=== PATIENT | female | born 1995 | race Caucasian/White ===

== ENCOUNTER 2016-09-30 09:50 | Inpatient (IN) | payer MEDICAID ==
[2016-09-30] MEDS ORDERED: Aluminum Hydroxide/Magnesium Hydroxide/Simethicone Susp 30 ML Cup PO PRN (10:55)
[2016-09-30] MEDS ORDERED: Ondansetron 4 MG/2 ML SDV IVPUSH PRN ×2 (10:55→13:51)
[2016-09-30] MEDS ORDERED: Nalbuphine 20 MG/1 ML Amp IVPUSH PRN (10:55)
[2016-09-30] MEDS ORDERED: Oxytocin/Lactated Ringers 10 UNIT/1,000 ML BAG IV SCH ×2 (11:00→12:15)
--- NOTE | 2016-09-30 11:39 | PCM.LDHP ---
L&D History of Present Illness - General Date of Service: 09/30/16 Admit Problem/Dx: Patient Status Order with Admit Dx/Problem 09/30/16 10:56 Patient Status [ADT] Routine Admission Diagnosis/Problem Admission Diagnosis/Problem Source of Information: Patient History Limitations: Reports: No Limitations - History of Present Illness Introduction:: 21-year-old MARY LOU 10/18/2016 presented to labor and delivered estimated gestational age of 37 weeks and 3 days with gross ruptured membranes 0 835 this morning clear fluid (09/30/16) GBS negative and pressures elevated PIH labs ordered some swelling and no hyperreflexia patient admitted for labor and delivery plans epidural blood type O-positive antibody screen negative on hemoglobin 11 crit 14.7/42.0 platelets 204,000 rubella immune serology nonreactive urine culture mixed alex Chlamydia and gonorrhea were negative on 02/24/16 ultrasound on 02/24/16 revealed 6 weeks 1 day estimated date of confinement 10/18/16 on 07/27/16 hemoglobin and hematocrit 13.8/40.5 platelets 164 ,001 hour OB glucose screen 97 Timing/Duration: Reports: hour(s): Location, : Reports: Abdomen, Lower back Quality: Reports: Ache, Pressure Severity: Mild Pain Score: 4 Improves with: Reports: None Worsens with: Reports: None Associated Symptoms: Reports: vaginal fluid - Related Data Allergies/Adverse Reactions: Allergies Allergy/AdvReac Type Severity Reaction Status Date / Time No Known Allergies Allergy Verified 09/30/16 10:52 Home Medications: Home Meds PNV95/Ferrous Fumarate/FA [ Vitamin Tablet] 1 each PO DAILY 09/26/16 [ History] Docosahexanoic Acid [DHA] 100 mg PO DAILY 09/30/16 [History] Past Medical History : 1 Para: 0 (0000) LMP (Approximate): H&P Review of Systems - Review of Systems: Review Of Systems: See Below General: Reports: No Symptoms HEENT: Reports: No Symptoms Pulmonary: Reports: No Symptoms Cardiovascular: Reports: No Symptoms Gastrointestinal: Reports: No Symptoms Genitourinary: Reports: No Symptoms Musculoskeletal: Reports: No Symptoms Skin: Reports: No Symptoms Psychiatric: Reports: No Symptoms Neurological: Reports: No Symptoms Hematologic/Lymphatic: Reports: No Symptoms Immunologic: Reports: No Symptoms L&D Exam - Exam Exam: See Below - Vital Signs Vital Signs: Last Vital Signs Temp 99.5 F 09/30/16 10:56 Pulse 121 H 09/30/16 10:56 Resp 18 09/30/16 10:56 BP 144/92 H 09/30/16 10:56 Pulse Ox 100 09/30/16 10:56 Weight: 190 lb 14.4 oz - OB Specific Fundal Height In cm: 37 Contraction Duration (sec): 60 Contraction Frequency (min): 5 Contraction Intensity: Mild Movement: Active Heart Tones: Present Heart Tones per Min: 144 Heart Rate (FHR) Variability: Moderate (6-25 bmp) Presentation: Vertex - Dykes Score Dykes Score Cervix Position: Posterior Dykes Score Consistency: Soft Dykes Score Effacement: 51-70% Dykes Score Dilation: 3-4 cm Dykes Score 's Station: -1 ,0 Dykes Score Total: 8 - Exam General: Alert, Oriented HEENT: Mucosa Moist & [place] Neck: Supple, Trachea Midline Lungs: Clear to Auscultation, Normal Respiratory Effort Cardiovascular: Regular Rate, Regular Rhythm Abdomen: Normal Bowel Sounds, Soft, Pelvis Stable Genitourinary: Normal external exam Extremities: Normal Inspection Skin: Warm, Dry, Intact Neurological: Reflexes Equal Bilateral DTR: 2+: Patella (L), Patella (R) - Patient Data Lab Results Last 24 hrs: Laboratory Results - last 24 hr 09/30/16 Range/Units 11:12 WBC 12.27 H (3.98-10.04) K/mm3 RBC 4.85 (3.98-5.22) M/mm3 Hgb 14.3 (11.2-15.7) gm/L Hct 41.6 (34.1-44.9) % MCV 85.8 (79.4-94.8) fl MCH 29.5 (25.6-32.2) pg MCHC 34.4 (32.2-35.5) g/dl RDW Std Deviation 40.4 (36.4-46.3) fL Plt Count 157 L (182-369) K/mm3 MPV 10.8 (9.4-12.3) fl Result Diagrams: 09/30/16 11:12 - Problem List (1) 37 weeks gestation of SNOMED Code(s): 37137651 ICD Code: Z3A.37 - 37 WEEKS GESTATION OF Status: Acute Current Visit: Yes (2) Gestational hypertension affecting first SNOMED Code(s): 37491748 ICD Code: O13.9 - GESTATIONAL HTN W/O SIGNIFICANT PROTEINURIA, UNSP TRIMESTER Status: Acute Current Visit: Yes Problem List Initiated/Reviewed/Updated: No Orders Last 24hrs: Active Orders 24 hr Category Date Time Status Patient Status [ADT] Routine ADT 09/30/16 10:56 Active Activity as Tolerated [RC] PFP Care 09/30/16 10:56 Active Communication Order [RC] ASDIRECTED Care 09/30/16 10:56 Active Notify Provider [RC] PFP Care 09/30/16 10:56 Active Notify Provider [RC] PRN Care 09/30/16 10:56 Active Vital Signs [RC] PER UNIT ROUTINE Care 09/30/16 10:56 Active Clear Liquid Diet [DIET] Diet 09/30/16 Lunch Active ALANINE AMINOTRANSFERASE,ALT [CHEM] Stat Lab 09/30/16 11:33 Ordered ASPARTATE AMNIOTRANSFERASE,AST [CHEM] Stat Lab 09/30/16 11:33 Ordered BLOOD UREA NITROGEN,BUN [CHEM] Stat Lab 09/30/16 11:33 Ordered CREATININE W/GFR [CHEM] Stat Lab 09/30/16 11:33 Ordered LACTATE DEHYDROGENASE,LDH [CHEM] Stat Lab 09/30/16 11:33 Ordered TYPE AND SCREEN [BBK] Stat Lab 09/30/16 11:12 Received URIC ACID [CHEM] Stat Lab 09/30/16 11:33 Ordered Alum Hydrox/Mag Hydrox/Simeth [Mag-Al Plus] Med 09/30/16 10:55 Active 30 ml PO Q8H PRN Lactated Ringers [Ringers, Lactated] 1,000 ml Med 09/30/16 11:00 Active IV ASDIRECTED Nalbuphine [Nubain] Med 09/30/16 10:55 Active 10 mg IVPUSH Q2H PRN Ondansetron [Zofran] Med 09/30/16 10:55 Active 4 mg IVPUSH Q4H PRN Oxytocin/Lactated Ringers [Pitocin in LR 10 Units/1,000 Med 09/30/16 11:00 Active ML] 10 unit in 1,000 ml IV ASDIRECTED Electronic Heart Tones Ext w TOCO [WOMSER] Oth 06/22/17 10:56 Ordered Routine Electronic Heart Tones Internal [WOMSER] Per Unit Oth 09/30/16 10:56 Ordered Routine PIH Panel [OM.PC] Stat Ot 09/30/16 11:33 Ordered Peripheral IV Insertion Adult [OM.PC] Routine Ot 09/30/16 10:56 Ordered Resuscitation Status Routine Resus Stat 09/30/16 10:55 Ordered Medication Orders Al Hydroxide/Mg Hydroxide (Mag-Al Plus) 30 ml PO Q8H PRN PRN Reason: Heartburn Lactated Ringer's (Ringers, Lactated) 1,000 mls @ 100 mls/hr IV ASDIRECTED RANDI Oxytocin/Lactated Ringer's (Pitocin In Lr 10 Units/1,000 Ml) 10 unit in 1,000 mls @ 500 mls/hr IV ASDIRECTED RANDI Nalbuphine HCl (Nubain) 10 mg IVPUSH Q2H PRN PRN Reason: Pain (moderate 4-6) Ondansetron HCl (Zofran) 4 mg IVPUSH Q4H PRN PRN Reason: Nausea/Vomiting Assessment/Plan Comment:: Labor and delivery
--- NOTE | 2016-09-30 13:34 | PCM.PREANE ---
Preanesthetic Assessment - Procedure Proposed Procedure: Labor Epidural - Anesthesia/Transfusion/Family Hx Anesthesia History: Prior Anesthesia Without Reaction Family History of Anesthesia Reaction: No Transfusion History: No Prior Transfusion(s) - Review of Systems General: No Symptoms Pulmonary: No Symptoms Cardiovascular: No Symptoms Gastrointestinal: No symptoms Neurological: No Symptoms Other: Reports: None - Physical Assessment NPO Status Date: 09/30/16 NPO Status Time: 08:00 O2 Sat by Pulse Oximetry: 100 Respiratory Rate: 18 Vital Signs: Last Vital Signs Temp 37.5 C 09/30/16 10:56 Pulse 121 H 09/30/16 10:56 Resp 18 09/30/16 10:56 BP 144/92 H 09/30/16 10:56 Pulse Ox 100 09/30/16 10:56 Height: 1.57 m Weight: 86.591 kg ASA Class: 2 Mental Status: Alert & Oriented x3 Airway Class: Mallampati = 1 Dentition: Reports: Normal Dentition Thyro-Mental Finger Breadths: 3 Mouth Opening Finger Breadths: 3 ROM/Head Extension: Full Lungs: Clear to auscultation, Normal respiratory effort Cardiovascular: Regular Rate, Regular Rhythm - Lab Values: Laboratory Last Values WBC 12.27 K/mm3 (3.98-10.04) H 09/30/16 11:12 RBC 4.85 M/mm3 (3.98-5.22) 09/30/16 11:12 Hgb 14.3 gm/L (11.2-15.7) 09/30/16 11:12 Hct 41.6 % (34.1-44.9) 09/30/16 11:12 MCV 85.8 fl (79.4-94.8) 09/30/16 11:12 MCH 29.5 pg (25.6-32.2) 09/30/16 11:12 MCHC 34.4 g/dl (32.2-35.5) 09/30/16 11:12 RDW Std Deviation 40.4 fL (36.4-46.3) 09/30/16 11:12 Plt Count 157 K/mm3 (182-369) L 09/30/16 11:12 MPV 10.8 fl (9.4-12.3) 09/30/16 11:12 PT 9.3 SECONDS (8.0-13.0) 09/30/16 12:05 INR 0.86 09/30/16 12:05 Fibrinogen 508.6 mg/dL (200-400) H 09/30/16 12:05 Fibrin Degrad Products < 5 ug/ml ug/mL (<5) 09/30/16 12:05 BUN 9 mg/dL (7-18) 09/30/16 11:12 Creatinine 0.8 mg/dL (0.55-1.02) 09/30/16 11:12 Est Cr Clr Drug Dosing 87.24 mL/min 09/30/16 11:12 Estimated GFR (MDRD) > 60 mL/min (>60) 09/30/16 11:12 Uric Acid 7.3 mg/dL (2.6-6.0) H 09/30/16 11:12 AST 32 U/L (15-37) 09/30/16 11:12 ALT 30 U/L (14-59) 09/30/16 11:12 Lactate Dehydrogenase 200 U/L (81-234) 09/30/16 11:12 Blood Type O POSITIVE 09/30/16 11:12 Gel Antibody Screen Negative 09/30/16 11:12 - Allergies Allergies/Adverse Reactions: Allergies Allergy/AdvReac Type Severity Reaction Status Date / Time No Known Allergies Allergy Verified 09/30/16 10:52 - Blood Blood Available: No Product(s) Available: None - Anesthesia Plan Pre-Op Medication Ordered: None - Acknowledgements Anesthesia Type Planned: Epidural Pt an Appropriate Candidate for the Planned Anesthesia: Yes Alternatives and Risks of Anesthesia Discussed w Pt/Guardian: Yes Pt/Guardian Understands and Agrees with Anesthesia Plan: Yes PreAnesthesia Questionnaire Psychiatric History: Reports: Anxiety, Depression - SUBSTANCE USE Smoking Status *Q: Never Smoker - HOME MEDS Home Medications: Home Meds PNV95/Ferrous Fumarate/FA [ Vitamin Tablet] 1 each PO DAILY 09/26/16 [ History] Docosahexanoic Acid [DHA] 100 mg PO DAILY 09/30/16 [History] - CURRENT (IN HOUSE) MEDS Current Meds: Current Medications Al Hydroxide/Mg Hydroxide (Mag-Al Plus) 30 ml PO Q8H PRN PRN Reason: Heartburn Lactated Ringer's (Ringers, Lactated) 1,000 mls @ 100 mls/hr IV ASDIRECTED RANDI Oxytocin/Lactated Ringer's (Pitocin In Lr 10 Units/1,000 Ml) 10 unit in 1,000 mls @ 500 mls/hr IV ASDIRECTED RADNI Oxytocin/Lactated Ringer's (Pitocin In Lr 10 Units/1,000 Ml) 10 unit in 1,000 mls @ 12 mls/hr IV TITRATE RANDI; 2 MUNITS/MIN PRN Reason: Protocol Nalbuphine HCl (Nubain) 10 mg IVPUSH Q2H PRN PRN Reason: Pain (moderate 4-6) Ondansetron HCl (Zofran) 4 mg IVPUSH Q4H PRN PRN Reason: Nausea/Vomiting
[2016-09-30] MEDS ORDERED: ePHEDrine 50 MG/ML SDV IVPUSH PRN (13:51)
[2016-09-30] MEDS ORDERED: diphenhydrAMINE 50 MG/ML SDV IVPUSH PRN (13:51)
[2016-09-30] MEDS ORDERED: fentaNYL 100 MCG/2 ML SDV EPIDUR PRN (13:51)
[2016-09-30] MEDS: Lactated Ringers 1,000 ML IV SCH ×4 (13:55→20:22)
[2016-09-30] MEDS ORDERED: Bupivacaine/fentaNYL/NS 100 ML Bag EPIDUR SCH (14:00)
--- NOTE | 2016-09-30 21:50 | PCM.DEL ---
L & D Note - General Info Date of Service: 09/30/16 Mother's Due Date: 10/18/16 - Delivery Note Labor: spontaneous, augmented by oxytocin Delivery Outcome: Livebirth (female liveborn 2127 hrs. on 09/30/16 3080 grams 6 pounds 12.6 ounces 7/9 EVA) Delivery Method: Spontaneous Vaginal Delivery Infant Delivery Mode: Spontaneous Presentation: Left Occiput Anterior (EVA) Nuchal Cord: None Prep: Povidone-Iodine (Betadine Anesthesia Type: Epidural ( 2127 hrs. on ) Amniotic Fluid Description: Clear (y 09/30/16 3) Episiotomy Type: None (080 g) Laceration: 1st degree (midline and left labia majora) Suture type: other (Monocryl) Suture size: 3-0 Placenta: intact, spontaneous (2130 hrs. 09/30/16) Cord: 3 vessels Estimated Blood Loss: 500 Resuscitation Needed: No : Suctioned, Bulb Syringe, Stimulated, Warmed, [place] Used Provider: Jonathan Birch Score 1 min: 7 Score 5 min: 9 - Patient Data Vitals - most recent: Last Vital Signs Temp 99.5 F 09/30/16 10:56 Pulse 121 H 09/30/16 10:56 Resp 18 09/30/16 13:44 BP 144/92 H 09/30/16 10:56 Pulse Ox 100 09/30/16 13:44 Weight - most recent: 190 lb 14.4 oz Lab Results last 24 hrs: Laboratory Results - last 24 hr 09/30/16 09/30/16 09/30/16 Range/Units 11:12 11:12 11:12 WBC 12.27 H (3.98-10.04) K/mm3 RBC 4.85 (3.98-5.22) M/mm3 Hgb 14.3 (11.2-15.7) gm/L Hct 41.6 (34.1-44.9) % MCV 85.8 (79.4-94.8) fl MCH 29.5 (25.6-32.2) pg MCHC 34.4 (32.2-35.5) g/dl RDW Std Deviation 40.4 (36.4-46.3) fL Plt Count 157 L (182-369) K/mm3 MPV 10.8 (9.4-12.3) fl PT (8.0-13.0) SECONDS INR Fibrinogen (200-400) mg/dL Fibrin Degrad Products (<5) ug/mL BUN 9 (7-18) mg/dL Creatinine 0.8 (0.55-1.02) mg/dL Est Cr Clr Drug Dosing 87.24 mL/min Estimated GFR (MDRD) > 60 (>60) mL/min Uric Acid 7.3 H (2.6-6.0) mg/dL AST 32 (15-37) U/L ALT 30 (14-59) U/L Lactate Dehydrogenase 200 (81-234) U/L Blood Type O POSITIVE Gel Antibody Screen Negative 09/30/16 09/30/16 Range/Units 12:05 12:05 WBC (3.98-10.04) K/mm3 RBC (3.98-5.22) M/mm3 Hgb (11.2-15.7) gm/L Hct (34.1-44.9) % MCV (79.4-94.8) fl MCH (25.6-32.2) pg MCHC (32.2-35.5) g/dl RDW Std Deviation (36.4-46.3) fL Plt Count (182-369) K/mm3 MPV (9.4-12.3) fl PT 9.3 (8.0-13.0) SECONDS INR 0.86 Fibrinogen 508.6 H (200-400) mg/dL Fibrin Degrad Products < 5 ug/ml (<5) ug/mL BUN (7-18) mg/dL Creatinine (0.55-1.02) mg/dL Est Cr Clr Drug Dosing mL/min Estimated GFR (MDRD) (>60) mL/min Uric Acid (2.6-6.0) mg/dL AST (15-37) U/L ALT (14-59) U/L Lactate Dehydrogenase (81-234) U/L Blood Type Gel Antibody Screen Med Orders - Current: Current Medications Al Hydroxide/Mg Hydroxide (Mag-Al Plus) 30 ml PO Q8H PRN PRN Reason: Heartburn Diphenhydramine HCl (Benadryl) 25 mg IVPUSH Q6H PRN PRN Reason: Pruritis Ephedrine Sulfate (Ephedrine Sulfate) 5 mg IVPUSH ASDIRECTED PRN PRN Reason: Hypotension Fentanyl (Sublimaze) 100 mcg EPIDUR Q3H PRN PRN Reason: Pain Last Admin: 09/30/16 15:50 Dose: 100 mcg Fentanyl/Bupivacaine HCl (Fentanyl/Bupivacaine/Ns 2 Mcg-0.125% 100 Ml) 100 ml EPIDUR ASDIRECTED RANDI Last Admin: 09/30/16 15:51 Dose: 100 ml Lactated Ringer's (Ringers, Lactated) 1,000 mls @ 100 mls/hr IV ASDIRECTED RANDI Last Admin: 09/30/16 20:22 Dose: 100 mls/hr Oxytocin/Lactated Ringer's (Pitocin In Lr 10 Units/1,000 Ml) 10 unit in 1,000 mls @ 500 mls/hr IV ASDIRECTED RANDI Oxytocin/Lactated Ringer's (Pitocin In Lr 10 Units/1,000 Ml) 10 unit in 1,000 mls @ 12 mls/hr IV TITRATE RANDI; 2 MUNITS/MIN PRN Reason: Protocol Last Titration: 09/30/16 20:21 Dose: 4 munits/min, 24 mls/hr Nalbuphine HCl (Nubain) 10 mg IVPUSH Q2H PRN PRN Reason: Pain (moderate 4-6) Ondansetron HCl (Zofran) 4 mg IVPUSH Q4H PRN PRN Reason: Nausea/Vomiting Ondansetron HCl (Zofran) 4 mg IVPUSH ONETIME PRN PRN Reason: Nausea/Vomiting - Problem List & Annotations (1) 37 weeks gestation of SNOMED Code(s): 22309953 Code(s): Z3A.37 - 37 WEEKS GESTATION OF Status: Acute Current Visit: Yes (2) Gestational hypertension affecting first SNOMED Code(s): 06143789 Code(s): O13.9 - GESTATIONAL HTN W/O SIGNIFICANT PROTEINURIA, UNSP TRIMESTER Status: Acute Current Visit: Yes (3) First degree perineal laceration during delivery SNOMED Code(s): 893520139 Code(s): O70.0 - FIRST DEGREE PERINEAL LACERATION DURING DELIVERY Status: Acute Current Visit: Yes - Problem List Review Problem List Initiated/Reviewed/Updated: No - My Orders Last 24 Hours: My Active Orders 09/30/16 10:55 Alum Hydrox/Mag Hydrox/Simeth [Mag-Al Plus] 30 ml PO Q8H PRN Nalbuphine [Nubain] 10 mg IVPUSH Q2H PRN Ondansetron [Zofran] 4 mg IVPUSH Q4H PRN Resuscitation Status Routine 09/30/16 10:56 Patient Status [ADT] Routine Activity as Tolerated [RC] PFP Communication Order [RC] ASDIRECTED Notify Provider [RC] PFP Notify Provider [RC] PRN Vital Signs [RC] PER UNIT ROUTINE Electronic Heart Tones Ext w TOCO [WOMSER] Routine Electronic Heart Tones Internal [WOMSER] Per Unit Routine Peripheral IV Insertion Adult [OM.PC] Routine 09/30/16 11:00 Lactated Ringers [Ringers, Lactated] 1,000 ml IV ASDIRECTED Oxytocin/Lactated Ringers [Pitocin in LR 10 Units/1,000 ML] 10 unit in 1,000 ml IV ASDIRECTED 09/30/16 11:33 PIH Panel [OM.PC] Stat 09/30/16 12:15 Oxytocin/Lactated Ringers [Pitocin in LR 10 Units/1,000 ML] 10 unit in 1,000 ml IV TITRATE 09/30/16 Lunch Clear Liquid Diet [DIET] - Plan Plan:: Labor and delivery
[2016-09-30] MEDS ORDERED: Lanolin 100% Cream 7 GM Tube TOP PRN (22:38)
[2016-09-30] MEDS ORDERED: Bupivacaine 0.25% 10 ML SDV ONE (22:38)
[2016-09-30] MEDS ORDERED: Acetaminophen/oxyCODONE 325-5 MG Tab PO PRN (22:38)
[2016-09-30] MEDS ORDERED: Witch Hazel Medicated Pads 100/Jar TOP PRN (22:38)
[2016-09-30] MEDS: Benzocaine/Menthol 20%-0.5% Spray 56 GM Canister TOP PRN ×2 (23:04→23:06)
[2016-09-30] MEDS: Ibuprofen 600 MG Tab PO PRN (23:04)
[2016-09-30] MEDS: Docusate Sodium 100 MG Cap PO PRN (23:04)
[2016-10-01] MEDS: Ibuprofen 600 MG Tab PO PRN ×3 (04:06→22:12)
--- NOTE | 2016-10-01 07:59 | PCM.SN ---
- Free Text/Narrative Note: PPD#1 Afebrile, no heavy vaginal bleeding, no leg cramping. Dr Bañuelos assembly lead person this weekend and will see patient tomorrow and dismiss when ready.
[2016-10-01] MEDS: Acetaminophen 325 MG Tab PO PRN (17:36)
[2016-10-01] MEDS: Benzocaine/Menthol 20%-0.5% Spray 56 GM Canister TOP PRN (22:12)
[2016-10-01] MEDS: Docusate Sodium 100 MG Cap PO PRN (23:30)
[2016-10-02] MEDS: Acetaminophen 325 MG Tab PO PRN (05:12)
[2016-10-02 05:35] VITALS: BP 139/82
--- NOTE | 2016-10-02 07:36 | PCM.PNPP ---
- General Info Date of Service: 10/02/16 Functional Status: Reports: pain controlled, tolerating diet, ambulating, urinating - Review of Systems General: Reports: No Symptoms Pulmonary: Reports: no symptoms Cardiovascular: Reports: No Symptoms Gastrointestinal: Reports: No symptoms Genitourinary: Reports: other (Some perineal discomfort and irritation ) - Patient Data Vital Signs - most recent: Last Vital Signs Temp 36.3 C 10/02/16 04:02 Pulse 109 H 10/02/16 04:02 Resp 16 10/02/16 04:02 BP 139/82 10/02/16 04:02 Pulse Ox 98 10/02/16 04:02 Weight - most recent: 86.591 kg Med Orders - Current: Current Medications Acetaminophen (Tylenol) 650 mg PO Q4H PRN PRN Reason: mild pain or fever Last Admin: 10/02/16 05:12 Dose: 650 mg Benzocaine/Menthol (Dermoplast Pain Relief [place]) 0 gm TOP ASDIRECTED PRN PRN Reason: Perineal Comfort Measure Last Admin: 10/01/16 22:12 Dose: 1 can Docusate Sodium (Colace) 100 mg PO BID PRN PRN Reason: Constipation Last Admin: 10/01/16 23:30 Dose: 100 mg Emollient Ointment (Lansinoh Hpa) 0 gm TOP ASDIRECTED PRN PRN Reason: Sore Nipples Ibuprofen (Motrin) 600 mg PO Q4H PRN PRN Reason: Mild pain or fever Last Admin: 10/01/16 22:12 Dose: 600 mg Oxycodone/Acetaminophen (Percocet 325-5 Mg) 2 tab PO Q4H PRN PRN Reason: Pain (moderate 4-6) Witch Irina (Tucks) 1 pad TOP ASDIRECTED PRN PRN Reason: Hemorrhoid pain Last Admin: 10/01/16 22:11 Dose: 1 pad Discontinued Medications Al Hydroxide/Mg Hydroxide (Mag-Al Plus) 30 ml PO Q8H PRN PRN Reason: Heartburn Bupivacaine HCl (Sensorcaine-Mpf 0.25%) 10 ml .ROUTE .STK-MED ONE Stop: 09/30/16 22:39 Diphenhydramine HCl (Benadryl) 25 mg IVPUSH Q6H PRN PRN Reason: Pruritis Ephedrine Sulfate (Ephedrine Sulfate) 5 mg IVPUSH ASDIRECTED PRN PRN Reason: Hypotension Fentanyl (Sublimaze) 100 mcg EPIDUR Q3H PRN PRN Reason: Pain Last Admin: 09/30/16 15:50 Dose: 100 mcg Fentanyl/Bupivacaine HCl (Fentanyl/Bupivacaine/Ns 2 Mcg-0.125% 100 Ml) 100 ml EPIDUR ASDIRECTED RANDI Last Admin: 09/30/16 15:51 Dose: 100 ml Lactated Ringer's (Ringers, Lactated) 1,000 mls @ 100 mls/hr IV ASDIRECTED RANDI Last Admin: 09/30/16 20:22 Dose: 100 mls/hr Oxytocin/Lactated Ringer's (Pitocin In Lr 10 Units/1,000 Ml) 10 unit in 1,000 mls @ 500 mls/hr IV ASDIRECTED RANDI Oxytocin/Lactated Ringer's (Pitocin In Lr 10 Units/1,000 Ml) 10 unit in 1,000 mls @ 12 mls/hr IV TITRATE RANDI; 2 MUNITS/MIN PRN Reason: Protocol Last Titration: 09/30/16 20:21 Dose: 4 munits/min, 24 mls/hr Nalbuphine HCl (Nubain) 10 mg IVPUSH Q2H PRN PRN Reason: Pain (moderate 4-6) Ondansetron HCl (Zofran) 4 mg IVPUSH Q4H PRN PRN Reason: Nausea/Vomiting Ondansetron HCl (Zofran) 4 mg IVPUSH ONETIME PRN PRN Reason: Nausea/Vomiting - Interaction Infant Disposition, : in Room with Family Infant Interaction: Holding Infant Feeding: Attempted ; Nursed Fair/Poor Support Person: Significant Other - Recovery Exam Fundal Tone: Firm Fundal Level: 2 Fingerbreadths Below Umbilicus Fundal Placement: Midline Lochia Amount: Small Lochia Color: Rubra/Red Perineum Description: Other (see below) Other Perinuem Description: first degree labial tear with repair Episiotomy/Laceration: Approximated Bladder Status: Voiding Urinary Elimination: Voided - Exam General: alert, oriented, cooperative Abdomen: soft, no tenderness Extremities: no edema Skin: warm, dry, intact - Problem List & Annotations (1) Vaginal delivery SNOMED Code(s): 001801253 Code(s): O80 - ENCOUNTER FOR FULL-TERM UNCOMPLICATED DELIVERY Status: Acute Current Visit: Yes (2) 37 weeks gestation of SNOMED Code(s): 29925365 Code(s): Z3A.37 - 37 WEEKS GESTATION OF Status: Acute Current Visit: Yes (3) First degree perineal laceration during delivery SNOMED Code(s): 808316814 Code(s): O70.0 - FIRST DEGREE PERINEAL LACERATION DURING DELIVERY Status: Acute Current Visit: Yes (4) Gestational hypertension affecting first SNOMED Code(s): 70900074 Code(s): O13.9 - GESTATIONAL HTN W/O SIGNIFICANT PROTEINURIA, UNSP TRIMESTER Status: Acute Current Visit: Yes - Problem List Review Problem List Initiated/Reviewed/Updated: Yes - Assessment Assessment:: 21 y/o G1 now P1 PPD#2 from at 37 3/7 wks - Plan Plan:: Gestational HTN * BP's mostly mild range after delivery. No signs/symptoms. Will have patient follow up in 1-2 weeks for a BP check S/p * Routine cares * Encourage breast feeding * Discharge home today
--- NOTE | 2016-10-02 07:41 | PCM.DCSUM1 ---
Discharge Summary - Discharge Data Discharge Date: 10/02/16 Discharge Disposition: Home, Self-Care 01 Condition: Good - Discharge Diagnosis/Problem(s) (1) Vaginal delivery SNOMED Code(s): 164473129 ICD Code: O80 - ENCOUNTER FOR FULL-TERM UNCOMPLICATED DELIVERY Status: Acute Current Visit: Yes (2) 37 weeks gestation of SNOMED Code(s): 46719463 ICD Code: Z3A.37 - 37 WEEKS GESTATION OF Status: Acute Current Visit: Yes (3) First degree perineal laceration during delivery SNOMED Code(s): 818646128 ICD Code: O70.0 - FIRST DEGREE PERINEAL LACERATION DURING DELIVERY Status: Acute Current Visit: Yes (4) Gestational hypertension affecting first SNOMED Code(s): 22481988 ICD Code: O13.9 - GESTATIONAL HTN W/O SIGNIFICANT PROTEINURIA, UNSP TRIMESTER Status: Acute Current Visit: Yes - Patient Summary/Data Complications: None Consults: None Recommended Follow-up Testing/Procedures: Follow up in 1-2 weeks for BP check and in 5-6 weeks for check Hospital Course: 21 y/o presented at 37 3/7 wks with SROM and findings of gestational HTN. She progressed well and underwent an uncomplicated . See delivery note for full details. she did well and was discharged home on PPD#2 - Patient Instructions Diet: Regular Diet as Tolerated Activity: As Tolerated Activity, Other: Pelvic Rest for 6 weeks Driving: May Drive Today Showering/Bathing: May Shower Showering/Bathing, Other: May Bathe Notify Provider of: Fever, Increased Pain, Swelling and Redness, Drainage, Nausea and/or Vomiting - Discharge Plan Home Medications: Home Meds PNV95/Ferrous Fumarate/FA [ Vitamin Tablet] 1 each PO DAILY 09/26/16 [ History] Ibuprofen [IJD: Ibuprofen] 600 mg PO Q4H PRN #0 tablet 10/01/16 [Rx] Referrals: Jonathan Birch MD [Physician] - (1-2 weeks for BP check 5-6 weeks for check) - Discharge Summary/Plan Comment DC Time >30 min.: No - Patient Data Vitals - Most Recent: Last Vital Signs Temp 36.3 C 10/02/16 04:02 Pulse 109 H 10/02/16 04:02 Resp 16 10/02/16 04:02 BP 139/82 10/02/16 04:02 Pulse Ox 98 10/02/16 04:02 Weight - Most Recent: 86.591 kg Med Orders - Current: Current Medications Acetaminophen (Tylenol) 650 mg PO Q4H PRN PRN Reason: mild pain or fever Last Admin: 10/02/16 05:12 Dose: 650 mg Benzocaine/Menthol (Dermoplast Pain Relief [place]) 0 gm TOP ASDIRECTED PRN PRN Reason: Perineal Comfort Measure Last Admin: 10/01/16 22:12 Dose: 1 can Docusate Sodium (Colace) 100 mg PO BID PRN PRN Reason: Constipation Last Admin: 10/01/16 23:30 Dose: 100 mg Emollient Ointment (Lansinoh Hpa) 0 gm TOP ASDIRECTED PRN PRN Reason: Sore Nipples Ibuprofen (Motrin) 600 mg PO Q4H PRN PRN Reason: Mild pain or fever Last Admin: 10/01/16 22:12 Dose: 600 mg Oxycodone/Acetaminophen (Percocet 325-5 Mg) 2 tab PO Q4H PRN PRN Reason: Pain (moderate 4-6) Witch Ir[place] (Tucks) 1 pad TOP ASDIRECTED PRN PRN Reason: Hemorrhoid pain Last Admin: 10/01/16 22:11 Dose: 1 pad Discontinued Medications Al Hydroxide/Mg Hydroxide (Mag-Al Plus) 30 ml PO Q8H PRN PRN Reason: Heartburn Bupivacaine HCl (Sensorcaine-Mpf 0.25%) 10 ml .ROUTE .STK-MED ONE Stop: 09/30/16 22:39 Diphenhydramine HCl (Benadryl) 25 mg IVPUSH Q6H PRN PRN Reason: Pruritis Ephedrine Sulfate (Ephedrine Sulfate) 5 mg IVPUSH ASDIRECTED PRN PRN Reason: Hypotension Fentanyl (Sublimaze) 100 mcg EPIDUR Q3H PRN PRN Reason: Pain Last Admin: 09/30/16 15:50 Dose: 100 mcg Fentanyl/Bupivacaine HCl (Fentanyl/Bupivacaine/Ns 2 Mcg-0.125% 100 Ml) 100 ml EPIDUR ASDIRECTED RANDI Last Admin: 09/30/16 15:51 Dose: 100 ml Lactated Ringer's (Ringers, Lactated) 1,000 mls @ 100 mls/hr IV ASDIRECTED RANDI Last Admin: 09/30/16 20:22 Dose: 100 mls/hr Oxytocin/Lactated Ringer's (Pitocin In Lr 10 Units/1,000 Ml) 10 unit in 1,000 mls @ 500 mls/hr IV ASDIRECTED RANDI Oxytocin/Lactated Ringer's (Pitocin In Lr 10 Units/1,000 Ml) 10 unit in 1,000 mls @ 12 mls/hr IV TITRATE RANDI; 2 MUNITS/MIN PRN Reason: Protocol Last Titration: 09/30/16 20:21 Dose: 4 munits/min, 24 mls/hr Nalbuphine HCl (Nubain) 10 mg IVPUSH Q2H PRN PRN Reason: Pain (moderate 4-6) Ondansetron HCl (Zofran) 4 mg IVPUSH Q4H PRN PRN Reason: Nausea/Vomiting Ondansetron HCl (Zofran) 4 mg IVPUSH ONETIME PRN PRN Reason: Nausea/Vomiting *Q Meaningful Use (DIS) - VTE *Q VTE Criteria *Q: - Stroke *Q Stroke Criteria *Q: - AMI *Q AMI Criteria *Q:
== END 2016-10-02 09:15 | disposition home or self-care (01) | DRG 775 ==
LOC: JD.OBCHECK 09:50 → JD.OB 09:51 → JD.OBCHECK 10:55 → JD.OB 10:56 → OBSVTOIN 21:28
PROVIDERS: ADMIT Obstetrics & Gynecology; ATTEND Obstetrics & Gynecology
PROC: 10E0XZZ Delivery of Products of Conception, External Approach (ICD-10-PCS; principal; 2016-09-30)
PROC: 0HQ9XZZ Repair Perineum Skin, External Approach (ICD-10-PCS; 2016-09-30)
PROC: 3E0R3CZ (ICD-10-PCS; 2016-09-30)
DX: O24.420 Gestational diabetes mellitus in childbirth, diet controlled (principal); O70.0 First degree perineal laceration during delivery; Z3A.37 37 weeks gestation of pregnancy; Z37.0 Single live birth
CPT/HCPCS: 01967; 36415; 82565; 83615; 84450; 84460; 84520; 84550; 85025; 85027; 85362; 85384; 85610; 86850; 86900; 86901; A9270-GY; J2590; J3010; J7120

== ENCOUNTER 2017-10-16 07:49 | Inpatient (IN) | payer BC, MEDICAID ==
[2017-10-16] MEDS ORDERED: Sodium Chloride 0.9% 10 ML Syringe FLUSH PRN (08:38)
[2017-10-16] MEDS ORDERED: Oxytocin/Lactated Ringers 10 UNIT/1,000 ML BAG IV SCH ×2 (08:45→16:15)
[2017-10-16] MEDS: Lactated Ringers 1,000 ML IV SCH ×3 (09:39→13:22)
[2017-10-16] MEDS ORDERED: Ondansetron 4 MG/2 ML SDV IVPUSH PRN (10:02)
[2017-10-16] MEDS ORDERED: fentaNYL 100 MCG/2 ML SDV EPIDUR PRN (10:02)
[2017-10-16] MEDS ORDERED: ePHEDrine 50 MG/ML SDV IVPUSH PRN (10:02)
--- NOTE | 2017-10-16 10:05 | PCM.PREANE ---
Preanesthetic Assessment - Anesthesia/Transfusion/Family Hx Anesthesia History: Prior Anesthesia Without Reaction Family History of Anesthesia Reaction: No Transfusion History: No Prior Transfusion(s) Intubation History: Unknown - Review of Systems General: No Symptoms Pulmonary: No Symptoms Cardiovascular: No Symptoms Gastrointestinal: No Symptoms (GERD) Neurological: No Symptoms, Tingling (CTS bilateral hands) Other: Reports: Anxiety - Physical Assessment NPO Status Date: 10/15/17 NPO Status Time: 19:00 Pulse: 117 O2 Sat by Pulse Oximetry: 100 Respiratory Rate: 18 Blood Pressure: 137/87 Temperature: 37.3 C Vital Signs: Last Vital Signs Temp 37.3 C 10/16/17 08:08 Pulse 117 H 10/16/17 08:08 Resp 18 10/16/17 08:08 BP 137/87 10/16/17 08:08 Pulse Ox 100 10/16/17 08:08 Height: 1.57 m Weight: 92.669 kg ASA Class: 2 Mental Status: Alert & Oriented x3 Airway Class: Mallampati = 2 Dentition: Reports: Normal Dentition, Caries Thyro-Mental Finger Breadths: 3 Mouth Opening Finger Breadths: 3 ROM/Head Extension: Full Lungs: Clear to Auscultation, Normal Respiratory Effort Cardiovascular: Regular Rate, Regular Rhythm, No Murmurs - Lab Values: Laboratory Last Values WBC 10.66 K/mm3 (3.98-10.04) H 10/16/17 08:50 RBC 4.91 M/mm3 (3.98-5.22) 10/16/17 08:50 Hgb 12.9 gm/L (11.2-15.7) 10/16/17 08:50 Hct 39.4 % (34.1-44.9) 10/16/17 08:50 MCV 80.2 fl (79.4-94.8) 10/16/17 08:50 MCH 26.3 pg (25.6-32.2) 10/16/17 08:50 MCHC 32.7 g/dl (32.2-35.5) 10/16/17 08:50 RDW Std Deviation 43.8 fL (36.4-46.3) 10/16/17 08:50 Plt Count 179 K/mm3 (182-369) L 10/16/17 08:50 MPV 11.6 fl (9.4-12.3) 10/16/17 08:50 Neut % (Auto) 75.8 % (34.0-71.1) H 10/16/17 08:50 Lymph % (Auto) 16.5 % (19.3-51.7) L 10/16/17 08:50 [place] % (Auto) 6.7 % (4.7-12.5) 10/16/17 08:50 Eos % (Auto) 0.4 (0.7-5.8) L 10/16/17 08:50 Baso % (Auto) 0.2 % (0.1-1.2) 10/16/17 08:50 Neut # (Auto) 8.09 K/mm3 (1.56-6.13) H 10/16/17 08:50 Lymph # (Auto) 1.76 K/mm3 (1.18-3.74) 10/16/17 08:50 [place] # (Auto) 0.71 K/mm3 (0.24-0.36) H 10/16/17 08:50 Eos # (Auto) 0.04 K/mm3 (0.04-0.36) 10/16/17 08:50 Baso # (Auto) 0.02 K/mm3 (0.01-0.08) 10/16/17 08:50 Above labs reviewed and noted and within acceptable ranges to proceed with epidural. - Allergies Allergies/Adverse Reactions: Allergies Allergy/AdvReac Type Severity Reaction Status Date / Time No Known Allergies Allergy Verified 10/16/17 08:42 - Anesthesia Plan Pre-Op Medication Ordered: None - Acknowledgements Anesthesia Type Planned: Epidural Pt an Appropriate Candidate for the Planned Anesthesia: Yes Alternatives and Risks of Anesthesia Discussed w Pt/Guardian: Yes Pt/Guardian Understands and Agrees with Anesthesia Plan: Yes PreAnesthesia Questionnaire [employer] History: Reports: Psychiatric History: Reports: Anxiety, Depression - Past Surgical History HEENT Surgical History: Reports: Adenoidectomy, Tonsillectomy, Other (See Below) Other HEENT Surgeries/Procedures: age 2 Musculoskeletal Surgical History: Reports: Carpal Tunnel - SUBSTANCE USE Smoking Status *Q: Never Smoker Recreational Drug Use History: No - HOME MEDS Home Medications: Home Meds PNV95/Ferrous Fumarate/FA [ Vitamin Tablet] 1 each PO DAILY 09/26/16 [ History] Ibuprofen [IJD: Ibuprofen] 600 mg PO Q4H PRN #0 tablet 10/01/16 [Rx] - CURRENT (IN HOUSE) MEDS Current Meds: Current Medications Ephedrine Sulfate (Ephedrine Sulfate) 5 mg IVPUSH ASDIRECTED PRN PRN Reason: Hypotension Fentanyl (Sublimaze) 100 mcg EPIDUR Q3H PRN PRN Reason: Pain Fentanyl/Bupivacaine HCl (Fentanyl/Bupivacaine/Ns 2 Mcg-0.125% 100 Ml) 100 ml EPIDUR ASDIRECTED [facility] Lactated Ringer's (Ringers, Lactated) 1,000 mls @ 100 mls/hr IV ASDIRECTED RANDI Last Admin: 10/16/17 09:39 Dose: 999 mls/hr Oxytocin/Lactated Ringer's (Pitocin In Lr 10 Units/1,000 Ml) 10 unit in 1,000 mls @ 500 mls/hr IV .CONTINUOUS [facility] Ondansetron HCl (Zofran) 4 mg IVPUSH ONETIME PRN PRN Reason: Nausea/Vomiting Sodium Chloride (Saline Flush) 10 ml FLUSH ASDIRECTED PRN PRN Reason: Keep Vein Open
[2017-10-16] MEDS ORDERED: Bupivacaine/fentaNYL/NS 100 ML Bag EPIDUR SCH (10:15)
--- NOTE | 2017-10-16 18:17 | PCM.SN ---
- Free Text/Narrative Note: Stage I - Pt presented in active labor. Progressed to complete with reassuring heart tones. Epidural anesthesia. Stage II - of viable male 3600g, 8/9 APGARS. Head delivered in controlled manner over intact perineum. body and shoulders atraumatically. Vigorous cry. 3vc. Stage III - of intact placenta. True knot. Small first degree laceration repaired with 3-0 vicryl. EBL 150
[2017-10-16] MEDS ORDERED: Lanolin 100% Cream 7 GM Tube TOP PRN (18:27)
[2017-10-16] MEDS ORDERED: Benzocaine/Menthol 20%-0.5% Spray 56 GM Canister TOP PRN (18:27)
[2017-10-16] MEDS ORDERED: Witch Hazel Medicated Pads 100/Jar TOP PRN (18:27)
[2017-10-16] MEDS ORDERED: Docusate Sodium 100 MG Cap PO PRN (18:27)
[2017-10-16] MEDS: Ibuprofen 600 MG Tab PO PRN (19:27)
[2017-10-16] MEDS ORDERED: Bupivacaine 0.25% 10 ML SDV ONE (22:00)
[2017-10-17] MEDS: Ibuprofen 600 MG Tab PO PRN ×3 (02:02→14:45)
--- NOTE | 2017-10-17 07:40 | PCM48HPAN ---
Post Anesthesia Note - EVALUATION WITHIN 48HRS OF ANESTHETIC Vital Signs in Normal Range: Yes Patient Participated in Evaluation: Yes Respiratory Function Stable: Yes Airway Patent: Yes Cardiovascular Function Stable: Yes Hydration Status Stable: Yes Pain Control Satisfactory: Yes Nausea and Vomiting Control Satisfactory: Yes Mental Status Recovered: Yes Pulse Rate: 78 Resp Rate: 16 Temperature: 97.9 F Blood Pressure: 118/62
[2017-10-17 15:53] VITALS: BP 141/64
== END 2017-10-17 19:45 | disposition home or self-care (01) | DRG 560 ==
LOC: JD.OBCHECK 07:49 → JD.OB 07:49 → JD.OBCHECK 08:37 → JD.OB 08:38 → OBSVTOIN 17:53 → JD.OB 17:54
PROVIDERS: ADMIT Obstetrics & Gynecology; ATTEND Obstetrics & Gynecology
PROC: 10E0XZZ Delivery of Products of Conception, External Approach (ICD-10-PCS; principal; 2017-10-16)
PROC: 0HQ9XZZ Repair Perineum Skin, External Approach (ICD-10-PCS; 2017-10-16)
PROC: 00HU33Z Insertion of Infusion Device into Spinal Canal, Percutaneous Approach (ICD-10-PCS; 2017-10-16)
PROC: 3E0R3BZ Introduction of Anesthetic Agent into Spinal Canal, Percutaneous Approach (ICD-10-PCS; 2017-10-16)
DX: O69.2XX0 Labor and delivery complicated by other cord entanglement, with compression, not applicable or unspecified (principal); O70.0 First degree perineal laceration during delivery; Z3A.39 39 weeks gestation of pregnancy; Z37.0 Single live birth
CPT/HCPCS: 36415; 51701; 59025; 59300; 59409; 85025; 85027; 86592; A9270-GY; J2590; J3010; J7120

== ENCOUNTER 2020-12-16 00:04 | Inpatient (IN) | payer MEDICAID ==
[2020-12-16] MEDS ORDERED: Acetaminophen 325 MG Tab PO PRN ×2 (03:00→21:43)
[2020-12-16] MEDS ORDERED: Sodium Chloride 0.9% 10 ML Syringe FLUSH PRN (03:00)
[2020-12-16] MEDS ORDERED: Ondansetron 4 MG/2 ML SDV IVPUSH PRN (03:00)
[2020-12-16] MEDS ORDERED: Calcium Carbonate 500 MG Tab.Chew PO PRN (03:00)
[2020-12-16] MEDS ORDERED: Nalbuphine 10 MG/1 ML Vial IVPUSH PRN (03:00)
[2020-12-16] MEDS ORDERED: Oxytocin/Lactated Ringers 10 UNIT/1,000 ML BAG IV SCH ×2 (03:00)
[2020-12-16] MEDS: Lactated Ringers 1,000 ML IV SCH ×2 (03:29→08:08)
[2020-12-16] MEDS ORDERED: Bupivacaine 0.25% 10 ML SDV ONE (07:00)
[2020-12-16] MEDS ORDERED: Lidocaine 1% 50 ML MDV INJECT ONE (07:00)
[2020-12-16] MEDS ORDERED: Bupivacaine/fentaNYL/NS 100 ML Bag EPIDUR PRN (07:30)
[2020-12-16] MEDS ORDERED: diphenhydrAMINE 50 MG/ML SDV IVPUSH PRN (07:30)
[2020-12-16] MEDS ORDERED: ePHEDrine 50 MG/ML SDV IVPUSH PRN (07:30)
[2020-12-16] MEDS ORDERED: fentaNYL 100 MCG/2 ML SDV EPIDUR PRN (07:30)
--- NOTE | 2020-12-16 07:54 | PCM.PREANE ---
Preanesthetic Assessment - Procedure Proposed Procedure: marysol - Anesthesia/Transfusion/Family Hx Anesthesia History: Prior Anesthesia Without Reaction Family History of Anesthesia Reaction: No Transfusion History: No Prior Transfusion(s) Intubation History: Unknown - Review of Systems General: No Symptoms Pulmonary: No Symptoms Cardiovascular: No Symptoms Gastrointestinal: No Symptoms Neurological: No Symptoms Other: Reports: Depression, Anxiety - Physical Assessment Vital Signs: Last Vital Signs Temp 98.5 F 12/16/20 03:15 Pulse 105 H 12/16/20 03:15 Resp 16 12/16/20 03:15 BP 133/81 12/16/20 03:15 Pulse Ox 98 12/16/20 03:15 Height: 5 ft 2 in Weight: 102.194 kg ASA Class: 2 Mental Status: Alert & Oriented x3 Airway Class: Mallampati = 1 Dentition: Reports: Normal Dentition Thyro-Mental Finger Breadths: 3 Mouth Opening Finger Breadths: 3 ROM/Head Extension: Full Lungs: Clear to Auscultation, Normal Respiratory Effort Cardiovascular: Regular Rate, Regular Rhythm - Lab Values: Laboratory Last Values WBC 12.28 K/mm3 (3.98-10.04) H 12/16/20 03:40 RBC 5.07 M/mm3 (3.98-5.22) 12/16/20 03:40 Hgb 13.7 gm/dl (11.2-15.7) 12/16/20 03:40 Hct 41.3 % (34.1-44.9) 12/16/20 03:40 MCV 81.5 fl (79.4-94.8) 12/16/20 03:40 MCH 27.0 pg (25.6-32.2) 12/16/20 03:40 MCHC 33.2 g/dl (32.2-35.5) 12/16/20 03:40 RDW Std Deviation 42.0 fL (36.4-46.3) 12/16/20 03:40 Plt Count 172 K/mm3 (182-369) L 12/16/20 03:40 MPV 11.2 fl (9.4-12.3) 12/16/20 03:40 Neut % (Auto) 63.7 % (34.0-71.1) 12/16/20 03:40 Lymph % (Auto) 27.1 % (19.3-51.7) 12/16/20 03:40 [place] % (Auto) 7.2 % (4.7-12.5) 12/16/20 03:40 Eos % (Auto) 1.4 (0.7-5.8) 12/16/20 03:40 Baso % (Auto) 0.3 % (0.1-1.2) 12/16/20 03:40 Neut # (Auto) 7.81 K/mm3 (1.56-6.13) H 12/16/20 03:40 Lymph # (Auto) 3.33 K/mm3 (1.18-3.74) 12/16/20 03:40 [place] # (Auto) 0.89 K/mm3 (0.24-0.36) H 12/16/20 03:40 Eos # (Auto) 0.17 K/mm3 (0.04-0.36) 12/16/20 03:40 Baso # (Auto) 0.04 K/mm3 (0.01-0.08) 12/16/20 03:40 SARS-CoV-2 RNA (ANYI) Negative (NEGATIVE) 12/16/20 03:00 Blood Type O POSITIVE 12/16/20 03:40 Gel Antibody Screen Negative 12/16/20 03:40 - Allergies Allergies/Adverse Reactions: Allergies Allergy/AdvReac Type Severity Reaction Status Date / Time No Known Allergies Allergy Verified 12/16/20 00:42 - Blood Blood Available: No - Acknowledgements Anesthesia Type Planned: Epidural Pt an Appropriate Candidate for the Planned Anesthesia: Yes Alternatives and Risks of Anesthesia Discussed w Pt/Guardian: Yes Pt/Guardian Understands and Agrees with Anesthesia Plan: Yes PreAnesthesia Questionnaire Cardiovascular History: Reports: None Respiratory History: Reports: None Gastrointestinal History: Reports: [employer] History: Reports: , Other (See Below) Other OB/BYN History: History of abnormal pap (ASCUS + HPV) Musculoskeletal History: Reports: None Psychiatric History: Reports: Anxiety, Depression Endocrine/Metabolic History: Reports: Obesity/BMI 30+ Oncologic (Cancer) History: Reports: None - Infectious Disease History Infectious Disease History: 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, Human Papilloma Virus (HPV) - Past Surgical History HEENT Surgical History: Reports: Adenoidectomy, Myringotomy w Tube(s), Tonsillectomy Musculoskeletal Surgical History: Reports: Other (See Below) Other Musculoskeletal Surgeries/Procedures:: History of right elbow fracture - SUBSTANCE USE Tobacco Use Status *Q: Never Tobacco User Tobacco Use Within Last Twelve Months: No Second Hand Smoke Exposure: No Days Per Week of Alcohol Use: 0 Recreational Drug Use History: No - HOME MEDS Home Medications: Home Meds Acyclovir 400 mg PO BID 12/16/20 [History] Clindamycin Phosphate [Cleocin T 1% Gel] 1 gm TOP BID 12/16/20 [History] No122/Iron/Folic Acid [ Multi Tablet] 1 each PO DAILY 12/16/20 [History] hydrOXYzine HCL [Hydroxyzine HCl] 25 mg PO Q6HR PRN 12/16/20 [History] valACYclovir HCl [valACYclovir] 1,000 mg PO Q12HR PRN 12/16/20 [History] - CURRENT (IN HOUSE) MEDS Current Meds: Current Medications Acetaminophen (Acetaminophen 325 Mg Tab) 650 mg PO Q4H PRN PRN Reason: Pain (Mild 1-3) and fever Calcium Carbonate/Glycine (Calcium Carbonate 500 Mg Tab.Chew) 1,000 mg PO Q2H PRN PRN Reason: Indigestion Diphenhydramine HCl (Diphenhydramine 50 Mg/Ml Sdv) 25 mg IVPUSH Q6H PRN PRN Reason: pruritis Ephedrine Sulfate (Ephedrine 50 Mg/Ml Sdv) 5 mg IVPUSH ASDIRECTED PRN PRN Reason: Hypotension Fentanyl (Fentanyl 100 Mcg/2 Ml Sdv) 100 mcg EPIDUR Q3H PRN PRN Reason: Pain Last Admin: 12/16/20 07:35 Dose: 100 mcg Documented by: Fentanyl/Bupivacaine HCl (Bupivacaine/Fentanyl/Ns 100 Ml Bag) 100 ml EPIDUR A SDIRECTED PRN PRN Reason: Pain Last Admin: 12/16/20 07:35 Dose: 100 ml Documented by: Oxytocin/Lactated Ringer's (Pitocin In Lr 10 Units/1,000 Ml) 10 unit in 1,000 mls @ 12 mls/hr IV TITRATE RANDI; Protocol Last Titration: 12/16/20 06:48 Dose: 0 munits/min, 0 mls/hr Documented by: Oxytocin/Lactated Ringer's (Pitocin In Lr 10 Units/1,000 Ml) 10 unit in 1,000 mls @ 500 mls/hr IV .CONTINUOUS RANDI Lactated Ringer's (Ringers, Lactated) 1,000 mls @ 100 mls/hr IV ASDIRECTED RANDI Last Admin: 12/16/20 03:29 Dose: 100 mls/hr Documented by: Nalbuphine HCl (Nalbuphine 10 Mg/1 Ml Vial) 10 mg IVPUSH Q2H PRN PRN Reason: Pain Ondansetron HCl (Ondansetron 4 Mg/2 Ml Sdv) 4 mg IVPUSH Q4H PRN PRN Reason: Nausea/Vomiting Sodium Chloride (Sodium Chloride 0.9% 10 Ml Syringe) 10 ml FLUSH ASDIRECTED PRN PRN Reason: Keep Vein Open Discontinued Medications Lidocaine HCl (Lidocaine 1% 50 Ml Mdv) 20 ml INJECT ONETIME ONE Stop: 12/16/20 07:01
--- NOTE | 2020-12-16 09:19 | PCM.LDHP ---
L&D History of Present Illness - General Date of Service: 12/16/20 Admit Problem/Dx: Patient Status Order with Admit Dx/Problem 12/16/20 03:00 Patient Status [ADT] Routine Admission Diagnosis/Problem Admission Diagnosis/Problem Term 12/16/20 09:07 Robb is a 25-year-old 3 para 2-0-0-2 female admitted on the a.m. of 12/16/2020 at 39-2/7 weeks gestational age with an MARY LOU of 12/21/2020 for induction of labor. Source of Information: Patient History Limitations: Reports: No Limitations - History of Present Illness Introduction:: Robb is a 25-year-old 3 para 2-0-0-2 female admitted on the a.m. of 12/16/2020 at 39-2/7 weeks gestational age with an MARY LOU of 12/21/2020 for induction of labor. The procedure, process, expectations of induction of labor discussed in detail with patient. She appears to understand, wishes to proceed. 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 Patient had menarche at approximately age 12-13 years. Cycles regular. Last menstrual period was somewhat uncertain. is dated by an ultrasound done at 6-4/7 weeks gestational age on 05/01/2020. Patient denies any STIs but has had an abnormal Pap smear with atypical squamous cells of uncertain significance with positive high risk HPV. Patient's previous obstetric history includes the followin. Female born 09/30/2017 at 37-3/7 weeks gestational age after 12 hours of labor6 pounds 12 ouncesNSVDepidural usedchild's name is Nila 2. Male born 10/16/2018 at 39-6/7 weeks after 9 hours of labor7 pounds 15 ouncesNSVDepidural usedchild's name is Isabel history: Patient's first evaluation was on 05/01/2020 at 6-4/7 weeks gestational age. Ultrasound at that time placed her MARY LOU at 12/21/2020. She had 4 ultrasounds since that time all agreeing with first ultrasound dating. She was seen for a regular visits. Made good fundal height growth. Her we ight gain was from 182 pounds to 220 pounds for a 38 pound increase. Her vital signs remained stable throughout the course. Fundal height growth was ahead of schedule. Last ultrasound done for size greater than dates discrepancy at 36 weeks showed growth at the 53rd percentile. This was done on 12/05/2020. Estimated weight was 6 pounds 8 ounces. Patient had decreased platelets at 28 weeks and decreased platelets at 34 weeks at 155,000. She is group B strep negative. She did receive betamethasone on 10/24/2020 and 10/27/2020 for contractions. She has a history of anxiety depression. She has a herpes simplex type I infection and a history of recurrent oral cold sores. No symptoms or signs at this time. She plans on breast-feeding. Prequel shows male infant and was negative. She has had itching weight and is use hydroxyzine for this. She has taken valacyclovir and acyclovir in treatment of her oral herpes on occasion. It has not been a significant problem during the course of the . She had her Tdap on 11/11/2020. MMR shows rubella immunity. She had varicella immunization 1995. HPV immunization 2019. Hepatitis A position 2003. Hepatitis B immunization 1994. Meningococcal immunization 2011. Laboratory testing in : Blood is all positive, antibody screen is negative. First hemoglobin is 13.9 g/dL and platelets were 208,000. Pap smear was negative. She is rubella immune. RPR is nonreactive. Urine cul ture was negative. Hepatitis B surface antigen and HIV assays were both negative. Awaiting gonorrhea tests were both negative. Second trimester hemoglobin was 13.3 and platelets are 171,000. 1 hour GTT was mildly elevated at 145. 3-hour GTT was normal with fasting blood sugar of 87, 1 hour glucose of 181, 2-hour glucose of 155 and a 3-hour glucose of 69. Patient's RPR on 09/25/2020 was nonreactive. Repeat platelet count on 09/11/2020 was 155,000. She is group B strep negative. Allergies: None Medications: 1. Hydroxyzine 25 mg p.o. 3-4 times a day as needed for pruritus 2. Clindamycin sulfate external solution used for acne as needed 3. Valacyclovir 1 g tablet orally with onset of cold sores. Repeat set in 12 hours. 4. vitamins 1 p.o. daily Past medical history: 1. x2. 2. Oral herpes 3. 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 Right elbow fracture as a child 5. Anxiety and depression historynot on medications at this time Past surgical history 1. Tonsillectomy adenoidectomy 2. Ear tubes surgery as a child Family history: Mother is alive and well with hypertension in . Maternal grandfather is unknown. Father is alive and well. Maternal grandmother is alive and well but has scoliosis. Paternal grandfather is alive and well but has a history of colon cancer. He is in his 80s. Paternal grand mother is secondary to AIDS. 1 brother is alive with Asperger's syndrome and hemochromatosis. 3 other brothers are healthy. Another brother unknown cause. A sister is alive and well. No family history of anesthesia, bleeding, blood clotting problems. Social history: Patient is single. 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 She does not use any significance alcohol, drugs or tobacco. Significant other is Chidi Cook. Review of systems: Review of systems: In general patient has no complaints. Baby has been active. No significant contractions noted. Skin: Negative Lungs: No infectious symptoms or shortness of breath Cardiovascular: No chest pain or exercise intolerance Breasts: No lumps, changes in size, pain, dimpling, discharge or axillary or supraclavicular concerns. changes noted. GI: Negative : Body habitus changes associated with . Musculoskeletal: Negative Neurological: Negative Physical exam: In general the patient is well-developed, well-nourished, pleasant female of stated age in no acute distress. On last evaluation clinic on 12/09/2020 blood pressure is 130/68. Weight was 220.8 pounds. Pregravid weight is 182 pounds. Height is 5 feet 2. Prepregnancy body mass index is 32.6. heart rate 138. Skin is warm dry without lesions. HEENT, neck and back within normal limits. Lungs are clear with good breath sounds in all lung sanches. Cardiovascular exam shows regular and rhythm without murmurs. Breast exam deferred have been done at first part of and found to be normal. Patient does plan to breast-feed. Abdomen is gravid with last fundal height at 42 cm. Baby in vertex presentation. Genital exam per digital shows cervix to be per nursing evaluation at the time of my evaluation shows cervix to be 6 to 7 cm, spontaneous rupture membranes with resultant clear amniotic fluid. Extremities and neurological exam are grossly within normal limits. Pain Score: 10 - Related Data Allergies/Adverse Reactions: Allergies Allergy/AdvReac Type Severity Reaction Status Date / Time No Known Allergies Allergy Verified 12/16/20 00:42 Home Medications: Home Meds Acyclovir 400 mg PO BID 12/16/20 [History] Clindamycin Phosphate [Cleocin T 1% Gel] 1 gm TOP BID 12/16/20 [History] No122/Iron/Folic Acid [ Multi Tablet] 1 each PO DAILY 12/16/20 [History] hydrOXYzine HCL [Hydroxyzine HCl] 25 mg PO Q6HR PRN 12/16/20 [History] valACYclovir HCl [valACYclovir] 1,000 mg PO Q12HR PRN 12/16/20 [History] Past Medical History Cardiovascular History: Reports: None Respiratory History: Reports: None Gastrointestinal History: Reports: GERD SUBSCRIPTION CLERK History: Reports: , Other (See Below) Other OB/BYN History: History of abnormal pap (ASCUS + HPV) Musculoskeletal History: Reports: None Psychiatric History: Reports: Anxiety, Depression Endocrine/Metabolic History: Reports: Obesity/BMI 30+ Oncologic (Cancer) History: Reports: None - Infectious Disease History Infectious Disease History: 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, Human Papilloma Virus (HPV) - Past Surgical History HEENT Surgical History: Reports: Adenoidectomy, Myringotomy w Tube(s), Tonsillectomy Musculoskeletal Surgical History: Reports: Other (See Below) Other Musculoskeletal Surgeries/Procedures:: History of right elbow fracture Social & Family History - Family History Family Medical History: No Pertinent Family History - Tobacco Use Tobacco Use Status *Q: Never Tobacco User Second Hand Smoke Exposure: No - Caffeine Use Caffeine Use: Reports: None - Alcohol Use Days Per Week of Alcohol Use: 0 - Recreational Drug Use Recreational Drug Use: No H&P Review of Systems - Review of Systems: Review Of Systems: See Below L&D Exam - Exam Exam: See Below - Vital Signs Vital Signs: Last Vital Signs Temp 36.9 C 12/16/20 03:15 Pulse 105 H 12/16/20 03:15 Resp 16 12/16/20 03:15 BP 133/81 12/16/20 03:15 Pulse Ox 98 12/16/20 03:15 Weight: 102.194 kg - Patient Data Lab Results Last 24 hrs: Laboratory Results - last 24 hr 12/16/20 12/16/20 12/16/20 Range/Units 03:00 03:40 03:40 WBC 12.28 H (3.98-10.04) K/mm3 RBC 5.07 (3.98-5.22) M/mm3 Hgb 13.7 (11.2-15.7) gm/dl Hct 41.3 (34.1-44.9) % MCV 81.5 (79.4-94.8) fl MCH 27.0 (25.6-32.2) pg MCHC 33.2 (32.2-35.5) g/dl RDW Std Deviation 42.0 (36.4-46.3) fL Plt Count 172 L (182-369) K/mm3 MPV 11.2 (9.4-12.3) fl Neut % (Auto) 63.7 (34.0-71.1) % Lymph % (Auto) 27.1 (19.3-51.7) % [place] % (Auto) 7.2 (4.7-12.5) % Eos % (Auto) 1.4 (0.7-5.8) Baso % (Auto) 0.3 (0.1-1.2) % Neut # (Auto) 7.81 H (1.56-6.13) K/mm3 Lymph # (Auto) 3.33 (1.18-3.74) K/mm3 [place] # (Auto) 0.89 H (0.24-0.36) K/mm3 Eos # (Auto) 0.17 (0.04-0.36) K/mm3 Baso # (Auto) 0.04 (0.01-0.08) K/mm3 SARS-CoV-2 RNA (ANYI) Negative (NEGATIVE) Blood Type O POSITIVE Gel Antibody Screen Negative Result Diagrams: 12/16/20 03:40 - Problem List (1) 39 weeks gestation of SNOMED Code(s): 11703615 ICD Code: Z3A.39 - 39 WEEKS GESTATION OF Status: Acute Current Visit: Yes (2) Gestational hypertension affecting first SNOMED Code(s): 21322306, 703617263 ICD Code: O13.9 - GESTATIONAL HTN W/O SIGNIFICANT PROTEINURIA, UNSP TRIMESTER Status: Acute Current Visit: Yes (3) Obesity (BMI 30.0-34.9) SNOMED Code(s): 485652465210607 ICD Code: E66.9 - OBESITY, UNSPECIFIED Status: Acute Current Visit: Yes (4) History of anxiety SNOMED Code(s): 084978414 ICD Code: Z86.59 - PERSONAL HISTORY OF OTHER MENTAL AND BEHAVIORAL DISORDERS Status: Acute Current Visit: Yes (5) History of depression SNOMED Code(s): 693771177 ICD Code: Z86.59 - PERSONAL HISTORY OF OTHER MENTAL AND BEHAVIORAL DISORDERS Status: Acute Current Visit: Yes (6) SROM (spontaneous rupture of membranes) SNOMED Code(s): 596400183 ICD Code: IBS0547 - Status: Acute Current Visit: Yes Problem List Initiated/Reviewed/Updated: Yes Orders Last 24hrs: Active Orders 24 hr Category Date Time Status Patient Status [ADT] Routine ADT 12/16/20 03:00 Active Activity as Tolerated [RC] PFP Care 12/16/20 03:00 Active Antiembolic Devices [RC] 0300 Care 12/16/20 03:00 Active Communication Order [RC] ASDIRECTED Care 12/16/20 03:00 Active Communication Order [RC] ASDIRECTED Care 12/16/20 03:00 Active Communication Order [RC] ASDIRECTED Care 12/16/20 03:00 Active Notify Provider [RC] ASDIRECTED Care 12/16/20 03:00 Active Notify Provider [RC] ASDIRECTED Care 12/16/20 07:30 Active Notify Provider [RC] PFP Care 12/16/20 03:00 Active Notify Provider [RC] PRN Care 12/16/20 03:00 Active Pump Management, Intrathecal [RC] ASDIRECTED Care 12/16/20 03:00 Active Urinary Catheter Assessment [RC] ASDIRECTED Care 12/16/20 03:00 Active Regular Diet [DIET] Diet 12/16/20 Breakfast Active HEP C VIRUS AB [REF] Stat Lab 12/16/20 03:40 Received RAPID PLASMA REAGIN,RPR [CHEM] Routine Lab 12/16/20 03:40 Received Acetaminophen [TylenoL] Med 12/16/20 03:00 Active 650 mg PO Q4H PRN Bupivacaine/fentaNYL/NS [fentaNYL/Bupivacaine/NS 2 MCG- Med 12/16/20 07:30 Active 0.125% 100 ML] 100 ml EPIDUR ASDIRECTED PRN Calcium Carbonate [Tums] Med 12/16/20 03:00 Active 1,000 mg PO Q2H PRN Lactated Ringers [Ringers, Lactated] 1,000 ml Med 12/16/20 03:00 Active IV ASDIRECTED Nalbuphine [Nubain] Med 12/16/20 03:00 Active 10 mg IVPUSH Q2H PRN Ondansetron [Zofran] Med 12/16/20 03:00 Active 4 mg IVPUSH Q4H PRN Oxytocin/Lactated Ringers [Pitocin in LR 10 Units/1,000 Med 12/16/20 03:00 Active ML] 10 unit in 1,000 ml IV .CONTINUOUS Oxytocin/Lactated Ringers [Pitocin in LR 10 Units/1,000 Med 12/16/20 03:00 Active ML] 10 unit in 1,000 ml IV TITRATE Sodium Chloride 0.9% [Saline Flush] Med 12/16/20 03:00 Active 10 ml FLUSH ASDIRECTED PRN diphenhydrAMINE [Benadryl] Med 12/16/20 07:30 Active 25 mg IVPUSH Q6H PRN ePHEDrine [ePHEDrine sulfate] Med 12/16/20 07:30 Active 5 mg IVPUSH ASDIRECTED PRN fentaNYL [Sublimaze] Med 12/16/20 07:30 Active 100 mcg EPIDUR Q3H PRN DVT/VTE Prophylaxis Reflex [OM.PC] Routine Ot 12/16/20 03:00 Ordered Electronic Heart Tones Ext w TOCO [WOMSER] Ot 12/16/20 03:00 Ordered Routine Electronic Heart Tones Internal [WOMSER] Per Unit Ot 12/16/20 03:00 Ordered Routine Peripheral IV Insertion Adult [OM.PC] Routine Oth 12/16/20 00:32 Ordered Resuscitation Status Routine Resus Stat 12/16/20 00:32 Ordered Medication Orders Acetaminophen (Acetaminophen 325 Mg Tab) 650 mg PO Q4H PRN PRN Reason: Pain (Mild 1-3) and fever Calcium Carbonate/Glycine (Calcium Carbonate 500 Mg Tab.Chew) 1,000 mg PO Q2H PRN PRN Reason: Indigestion Diphenhydramine HCl (Diphenhydramine 50 Mg/Ml Sdv) 25 mg IVPUSH Q6H PRN PRN Reason: pruritis Ephedrine Sulfate (Ephedrine 50 Mg/Ml Sdv) 5 mg IVPUSH ASDIRECTED PRN PRN Reason: Hypotension Fentanyl (Fentanyl 100 Mcg/2 Ml Sdv) 100 mcg EPIDUR Q3H PRN PRN Reason: Pain Last Admin: 12/16/20 07:35 Dose: 100 mcg Documented by: HECTOR Fentanyl/Bupivacaine HCl (Bupivacaine/Fentanyl/Ns 100 Ml Bag) 100 ml EPIDUR ASDIRECTED PRN PRN Reason: Pain Last Admin: 12/16/20 07:35 Dose: 100 ml Documented by: HECTOR Oxytocin/Lactated Ringer's (Pitocin In Lr 10 Units/1,000 Ml) 10 unit in 1,000 mls @ 12 mls/hr IV TITRATE RANDI; Protocol Last Titration: 12/16/20 06:48 Dose: 0 munits/min, 0 mls/hr Documented by: Titration: 12/16/20 06:40 Dose: 2 munits/min, 12 mls/hr Documented by: Titration: 12/16/20 06:15 Dose: 5 munits/min, 30 mls/hr Documented by: Titration: 12/16/20 05:00 Dose: 10 munits/min, 60 mls/hr Documented by: Titration: 12/16/20 04:15 Dose: 8 munits/min, 48 mls/hr Documented by: Titration: 12/16/20 04:00 Dose: 6 munits/min, 36 mls/hr Documented by: Titration: 12/16/20 03:46 Dose: 4 munits/min, 24 mls/hr Documented by: Admin: 12/16/20 03:30 Dose: 2 munits/min, 12 mls/hr Documented by: WILLIAM Oxytocin/Lactated Ringer's (Pitocin In Lr 10 Units/1,000 Ml) 10 unit in 1,000 mls @ 500 mls/hr IV .CONTINUOUS RANDI Lactated Ringer's (Ringers, Lactated) 1,000 mls @ 100 mls/hr IV ASDIRECTED RANDI Last Admin: 12/16/20 08:08 Dose: 100 mls/hr Documented by: Infusion: 12/16/20 08:08 Dose: 100 mls/hr Documented by: Admin: 12/16/20 03:29 Dose: 100 mls/hr Documented by: WILLIAM Nalbuphine HCl (Nalbuphine 10 Mg/1 Ml Vial) 10 mg IVPUSH Q2H PRN PRN Reason: Pain Ondansetron HCl (Ondansetron 4 Mg/2 Ml Sdv) 4 mg IVPUSH Q4H PRN PRN Reason: Nausea/Vomiting Sodium Chloride (Sodium Chloride 0.9% 10 Ml Syringe) 10 ml FLUSH ASDIRECTED PRN PRN Reason: Keep Vein Open Assessment/Plan Comment:: 1. Robb is a 25-year-old 3 para 2-0-0-2 female admitted on the a.m. of 12/16/2020 at 39-2/7 weeks gestational age with an MARY LOU of 12/21/2020 for induction of labor. 2. Group B strep negative 3. Risk factors were include obesity, history of anxiety and depression, oral herpes, history of hypertension first , history of mildly decreased platelets third trimester. 4. Patient plans to breast-feed 5. Prequel noninvasive screen is negative for trisomy 21, 18 and 13. Male identified. 6. Generalized pruritus in but no evidence of intrahepatic cholestasis of . 7. Patient is rubella immune Plan: 1. Patient was started into labor with Pitocin but this was rapidly discontinued as patient had spontaneous rupture membranes and proceeded in labor on her own. Anticipate 2. Epidural in place for labor analgesia 3. Support breast-feeding decision 4. Routine admission labs performed.
[2020-12-16] MEDS ORDERED: Ibuprofen 600 MG Tab PO PRN (19:53)
[2020-12-16] MEDS ORDERED: Docusate Sodium 100 MG Cap PO PRN ×2 (20:09→21:43)
[2020-12-16] MEDS ORDERED: Docusate Sodium 100 MG Cap PO SCH (21:00)
[2020-12-16] MEDS ORDERED: Witch Hazel Medicated Pads 40/Jar TOP PRN (21:43)
[2020-12-16] MEDS ORDERED: Benzocaine/Menthol 20%-0.5% Spray 78 GM Cannister TOP PRN (21:43)
--- NOTE | 2020-12-16 21:47 | PCM.SN.2 ---
- Free Text/Narrative Note: Delivery note: Stage I: Robb is a 25-year-old 3 para 2-0-0-2 female admitted on the a.m. of 12/16/2020 at 39-2/7 weeks gestational age with an MARY LOU of 12/21/2020 for induction of labor. She underwent induction of labor with Pitocin. After short period time of Pitocin she had spontaneous rupture membranes with resultant clear amniotic fluid. She progressed steadily after that and Pitocin was eventually shut off completely towards the end of labor is restarted in a very low dose. She had an epidural placed for labor analgesia. This with good results. She progressed to complete cervical dilation sometime before on 1237 hrs. on 12/16/2020 which is when she delivered. Vital signs remained stable. Fet al heart tones were reassuring except for some head compression variable decelerations seen at the end. Stage II: Robb had delivery of a viable, melara, male infant with Apgars of 4 and 8 in a right occiput anterior position at 1237 hrs. on 12/16/2020. Baby rotated from right posterior position to right anterior position. Baby was noted to posterior during most of the portion part of the labor and rotated right at the end. With this rotation of the baby then delivered the head. Mild shoulder dystocia resulted. Rotation of the baby forward rotating the baby's left shoulder to in line with the plane of the pelvis. This along with suprapubic pressure by the nurse Nuvia brought about resolution of the shoulder dystocia and deliver the baby. He was placed on mom's abdomen. Nose and mouth were bulb suction. Baby was dried with warm blanket. heart rate was good right away. Because of the shoulder dystocia and less than optimal cry the baby was taken to the monitor after clamping the cord and cutting the cord was accomplished by the baby's father. There baby was given some some blow-by oxygen and with this recover nicely. The baby weighed 3850 g 8 pounds 7.8 ounces. Length was 21.0 inches. The perineum was noted to be intact. No evidence of bleeding was noted. The umbilical cord had 3 vessels. Cord blood was obtained. Stage III: The placenta delivered at 1244 hrs. in a [place] presentation. It appeared intact and complete and was discarded per patient desire. Bleeding was minimal. The placenta was 2 fingerbreadths below the umbilicus. No vaginal lac erations were reported and no suturing was required. Exam blood loss was 150 cc an hour. Patient plans to breast-feed. Condition: Good
[2020-12-17] MEDS: Ibuprofen 600 MG Tab PO PRN ×2 (02:11→09:14)
--- NOTE | 2020-12-17 07:52 | PCM.SN.2 ---
- Free Text/Narrative Note: Post Progress Note PPD #1 Subjective: Doing well overall. Ambulating without difficulty. Lochia minimal. Voiding without difficulty. Reports that she is having some mild urinary urgency since delivery. She denies any urinary frequency. She states that when she feels like she has to go to the bathroom she has been to get there right away or she will start to leak urine. She has not had any urinary incontinence since delivery. Tolerating regular diet without nausea or vomiting. Pain controlled with oral medications. Breast-feeding and pumping small amounts with minimal difficulty. Objective: Vitals: Vital Signs - 24 hr 12/16/20 12/17/20 20:20 02:12 Temperature 37.2 C 36.6 C Pulse, 104 H 85 Peripheral Respiratory 16 14 Rate Blood Pressure 127/59 L 123/72 O2 Sat by Pulse 93 L 98 Oximetry Physical Exam General: Alert and oriented, no acute distress Lungs: Clear to auscultation bilaterally Heart: Regular rate and rhythm Abdomen: Soft, minimal appropriate tenderness, non-distended, fundus midline, nontender, and 2 fingerbreadths below the umbilicus Extremities: No edema bilaterally, no calf tenderness bilaterally Laboratory Results - last 24 hr 12/16/20 Range/Units 03:40 RPR Non-reactive (NONREACTIVE) ASSESSMENT: 25-year-old female -0-0-3 s/p normal vaginal delivery PPD #1, complicated by shoulder dystocia with delivery and history of anxiety/depression PLAN: Doing well Breast-feeding with minimal difficulty. Assist as needed Lochia minimal. Continue to monitor for appropriate lochia. Continue routine care Discussed with patient that the urinary urgency may be due to swelling in the pelvic structures and she should monitor this over the next few days. She should contact our office if it does continue. Anticipate discharge home today Lul Pham MD 7:52 AM 12/17/2020
--- NOTE | 2020-12-17 08:01 | PCM.DCSUM1 ---
Discharge Summary - Hospital Course Free Text/Narrative:: Stage I: Robb is a 25-year-old 3 para 2-0-0-2 female admitted on the a.m. of 12/16/2020 at 39-2/7 weeks gestational age with an MARY LOU of 12/21/2020 for induction of labor. She underwent induction of labor with Pitocin. After short period time of Pitocin she had spontaneous rupture membranes with resultant clear amniotic fluid. She progressed steadily after that and Pitocin was eventually shut off completely towards the end of labor is restarted in a very low dose. She had an epidural placed for labor analgesia. This with good results. She progressed to complete cervical dilation sometime before on 1237 hrs. on 12/16/2020 which is when she delivered. Vital signs remained stable. heart tones were reassuring except for some head compression variable decelerations seen at the end. Stage II: Robb had delivery of a viable, melara, male with Apgars of 4 and 8 in a right occiput anterior position at 1237 hrs. on 12/16/2020. Baby rotated from right posterior position to right anterior position. Baby was noted to posterior during most of the portion part of the labor and rotated right at the end. With this rotation of the baby then delivered the head. Mild shoulder dystocia resulted. Rotation of the baby forward rotating the baby's left shoulder to in line with the plane of the pelvis. This along with suprapubic pressure by the nurse Nuvia brought about resolution of the shoulder dystocia and deliver the baby. He was placed on mom's abdomen. Nose and mouth were bulb suction. Baby was dried with warm blanket. heart rate was good right away. Because of the shoulder dystocia and less than optimal cry the baby was taken to the monitor after clamping the cord and cutting the cord was accomplished by the baby's father. There baby was given some some blow-by oxygen and with this recover nicely. The baby weighed 3850 g 8 pounds 7.8 ounces. Length was 21.0 inches. The perineum was noted to be intact. No evidence of bleeding was noted. The umbilical cord had 3 vessels. Cord blood was obtained. Stage III: The placenta delivered at 1244 hrs. in a Jernigan presentation. It appeared intact and complete and was discarded per patient desire. Bleeding was minimal. The placenta was 2 fingerbreadths below the umbilicus. No vaginal lacerations were reported and no suturing was required. Exam blood loss was 150 cc an hour. Patient plans to breast-feed. Condition: Good Diagnosis: Stroke: No - Discharge Data Discharge Date: 12/17/20 Discharge Disposition: Home, Self-Care 01 Condition: Good - Referral to Home Health Primary Care Physician: Josh Gutierres MD - Discharge Diagnosis/Problem(s) (1) 39 weeks gestation of SNOMED Code(s): 49948679 ICD Code: Z3A.39 - 39 WEEKS GESTATION OF Status: Acute Current Visit: Yes (2) History of anxiety SNOMED Code(s): 290686921 ICD Code: Z86.59 - PERSONAL HISTORY OF OTHER MENTAL AND BEHAVIORAL DISORDERS Status: Acute Current Visit: Yes (3) History of depression SNOMED Code(s): 302801721 ICD Code: Z86.59 - PERSONAL HISTORY OF OTHER MENTAL AND BEHAVIORAL DISORDERS Status: Acute Current Visit: Yes (4) Obesity (BMI 30.0-34.9) SNOMED Code(s): 970415143736054 ICD Code: E66.9 - OBESITY, UNSPECIFIED Status: Acute Current Visit: Yes (5) Vaginal delivery SNOMED Code(s): 428963853 ICD Code: O80 - ENCOUNTER FOR FULL-TERM UNCOMPLICATED DELIVERY Status: Acute Current Visit: No - Patient Summary/Data Complications: Shoulder dystocia at time of delivery Consults: None Hospital Course: Robb Roche was admitted for induction of labor. On admission her cervix was dilated to 6-7 cm. She was GBS negative. She was given pitocin for augmentation. She had spontaneous rupture of membranes with clear fluid. She was given an epidural for anesthesia. She progressed to complete and began pushing. On 12/16/2020 she had a normal vaginal delivery of a live male infant at 12:37. Apgars of 4 and 8. Weight of 3850 g (8 pounds 7.8 ounces). Patient had mild shoulder dystocia during delivery was relieved with Barriga screw maneuver and suprapubic pressure. Her course was uneventful. Her pain was well controlled and she had minimal lochia. She was ambulating, tolerating a regular diet and voiding normally. Patient was having some urinary urgency after delivery likely due to inflammation and swelling in the pelvic structures with the shoulder dystocia. She was breast-feeding and pumping breastmilk with minimal difficulty. She was afebrile and her hematocrit was 41.3 on admission. She desired to be discharged home on the morning of PPD #1. Her blood type is O+. - Patient Instructions Diet: Regular Diet as Tolerated Activity: Apply Ice, As Tolerated Activity, Other: Nothing in the vagina for 6 weeks Driving: May Drive Today Showering/Bathing: May Shower Notify Provider of: Fever, Increased Pain, Swelling and Redness, Drainage, Nausea and/or Vomiting Other/Special Instructions: Please contact your physician's office if you have heavy vaginal bleeding enough to soak a pad in less than an hour for several hours. Monitor for any signs of an infection in the breasts with severe pain or redness of the breast. - Discharge Plan *PRESCRIPTION DRUG MONITORING PROGRAM REVIEWED*: Not Applicable *COPY OF PRESCRIPTION DRUG MONITORING REPORT IN PATIENT LEOBARDO: Not Applicable Home Medications: Home Meds Acyclovir 400 mg PO BID 12/16/20 [History] Clindamycin Phosphate [Cleocin T 1% Gel] 1 gm TOP BID 12/16/20 [History] No122/Iron/Folic Acid [ Multi Tablet] 1 each PO DAILY 12/16/20 [History] hydrOXYzine HCL [Hydroxyzine HCl] 25 mg PO Q6HR PRN 12/16/20 [History] valACYclovir HCl [valACYclovir] 1,000 mg PO Q12HR PRN 12/16/20 [History] Acetaminophen [Tylenol] 650 mg PO Q4H PRN tablet 12/17/20 [Rx] Benzocaine/Menthol [Dermoplast Pain Relief 20%-0.5% [place]] 1 spray TOP ASDIRECTED PRN canister 12/17/20 [Rx] Docusate Sodium [Colace] 100 mg PO BID PRN cap 12/17/20 [Rx] Ibuprofen [Motrin] 600 mg PO Q6H PRN tablet 12/17/20 [Rx] witch Irina [Tucks] 1 pad TOP ASDIRECTED PRN pad 12/17/20 [Rx] Patient Handouts: Care After Vaginal Delivery Referrals: Josh Gutierres MD [Primary Care Provider] - (Follow-up in 2 weeks for routine visit or earlier as needed.) - Discharge Summary/Plan Comment DC Time >30 min.: No Total # of Minutes for Discharge Time: 15 minutes - Patient Data Vitals - Most Recent: Last Vital Signs Temp 36.6 C 12/17/20 02:12 Pulse 85 12/17/20 02:12 Resp 14 12/17/20 02:12 BP 123/72 12/17/20 02:12 Pulse Ox 98 12/17/20 02:12 Weight - Most Recent: 102.194 kg I&O - Last 24 hours: Intake & Output 12/16/20 12/17/20 12/17/20 22:59 06:59 14:59 Output Total 198 Balance -198 Lab Results - Last 24 hrs: Laboratory Results - last 24 hr 12/16/20 Range/Units 03:40 RPR Non-reactive (NONREACTIVE) Med Orders - Current: Current Medications Acetaminophen (Acetaminophen 325 Mg Tab) 650 mg PO Q4H PRN PRN Reason: mild pain or fever Benzocaine/Menthol (Benzocaine/Menthol 20%-0.5% [place] 78 Gm Cannister) 0 gm TOP ASDIRECTED PRN PRN Reason: Perineal Comfort Measure Docusate Sodium (Docusate Sodium 100 Mg Cap) 100 mg PO BID PRN PRN Reason: Constipation Ibuprofen (Ibuprofen 600 Mg Tab) 600 mg PO Q4H PRN PRN Reason: Mild pain or fever Last Admin: 12/17/20 02:11 Dose: 600 mg Documented by: Prenat Multivit/Rinard/Iron/Folic Ac ( Multivitamin With Calcium/Folic Acid/Iron Tab) 1 each PO DAILY RANDI Nadiya Arevalo (Witch Irina Medicated Pads 40/Jar) 1 pad TOP ASDIRECTED PRN PRN Reason: Perineal Comfort Measure Discontinued Medications Acetaminophen (Acetaminophen 325 Mg Tab) 650 mg PO Q4H PRN PRN Reason: Pain (Mild 1-3) and fever Last Admin: 12/16/20 19:00 Dose: 650 mg Documented by: Bupivacaine HCl (Bupivacaine 0.25% 10 Ml Sdv) 10 ml .ROUTE .STK-MED ONE Stop: 12/16/20 07:01 Calcium Carbonate/Glycine (Calcium Carbonate 500 Mg Tab.Chew) 1,000 mg PO Q2H PRN PRN Reason: Indigestion Diphenhydramine HCl (Diphenhydramine 50 Mg/Ml Sdv) 25 mg IVPUSH Q6H PRN PRN Reason: pruritis Docusate Sodium (Docusate Sodium 100 Mg Cap) 100 mg PO BID PRN PRN Reason: Constipation Last Admin: 12/16/20 20:25 Dose: 100 mg Documented by: Ephedrine Sulfate (Ephedrine 50 Mg/Ml Sdv) 5 mg IVPUSH ASDIRECTED PRN PRN Reason: Hypotension Fentanyl (Fentanyl 100 Mcg/2 Ml Sdv) 100 mcg EPIDUR Q3H PRN PRN Reason: Pain Last Admin: 12/16/20 07:35 Dose: 100 mcg Documented by: Fentanyl/Bupivacaine HCl (Bupivacaine/Fentanyl/Ns 100 Ml Bag) 100 ml EPIDUR ASDIRECTED PRN PRN Reason: Pain Last Admin: 12/16/20 07:35 Dose: 100 ml Documented by: Oxytocin/Lactated Ringer's (Pitocin In Lr 10 Units/1,000 Ml) 10 unit in 1,000 mls @ 12 mls/hr IV TITRATE RANDI; Protocol Last Titration: 12/16/20 09:38 Dose: 2 munits/min, 12 mls/hr Documented by: Oxytocin/Lactated Ringer's (Pitocin In Lr 10 Units/1,000 Ml) 10 unit in 1,000 mls @ 500 mls/hr IV .CONTINUOUS RANDI Lactated Ringer's (Ringers, Lactated) 1,000 mls @ 100 mls/hr IV ASDIRECTED RANDI Last Admin: 12/16/20 08:08 Dose: 100 mls/hr Documented by: Ibuprofen (Ibuprofen 600 Mg Tab) 600 mg PO Q6H PRN PRN Reason: Pain Last Admin: 12/16/20 20:21 Dose: 600 mg Documented by: Lidocaine HCl (Lidocaine 1% 50 Ml Mdv) 20 ml INJECT ONETIME ONE Stop: 12/16/20 07:01 Last Admin: 12/16/20 20:03 Dose: Not Given Documented by: Nalbuphine HCl (Nalbuphine 10 Mg/1 Ml Vial) 10 mg IVPUSH Q2H PRN PRN Reason: Pain Ondansetron HCl (Ondansetron 4 Mg/2 Ml Sdv) 4 mg IVPUSH Q4H PRN PRN Reason: Nausea/Vomiting Sodium Chloride (Sodium Chloride 0.9% 10 Ml Syringe) 10 ml FLUSH ASDIRECTED PRN PRN Reason: Keep Vein Open
[2020-12-17] MEDS ORDERED: Prenatal Multivitamin with Calcium/Folic Acid/Iron Tab PO SCH (09:00)
--- NOTE | 2020-12-17 09:13 | PCM48HPAN ---
Post Anesthesia Note - EVALUATION WITHIN 48HRS OF ANESTHETIC Vital Signs in Normal Range: Yes Patient Participated in Evaluation: Yes Respiratory Function Stable: Yes Airway Patent: Yes Cardiovascular Function Stable: Yes Hydration Status Stable: Yes Pain Control Satisfactory: Yes Nausea and Vomiting Control Satisfactory: Yes Mental Status Recovered: Yes Vital Signs: Last Vital Signs Temp 97.9 F 12/17/20 02:12 Pulse 85 12/17/20 02:12 Resp 14 12/17/20 02:12 BP 123/72 12/17/20 02:12 Pulse Ox 98 12/17/20 02:12 - COMMENTS/OBSERVATIONS Free Text/Narrative:: Patient resting in bed holding baby when visiting with patient. Patient stated that she was "very happy" with her epidural and labor experience. Patient complained of mild back pain in epidural placement site but is controlled and has not gotten worse. Discussed signs and symptoms of infection, post-dural puncture headache, post- depression, and if patient experiences increased back discomfort. Encouraged patient if any of those signs or symptoms develop to contact OB/Anesthesia so the patient can be treated accordingly if needed. Patient verbalized understanding. Patient did not voice any questions or concerns at this time. Charity Joel, [employer] E[employer] TECHNICIAN
[2020-12-17 15:37] VITALS: BP 131/73; PULSE 79
== END 2020-12-17 17:08 | disposition home or self-care (01) | DRG 807 ==
LOC: JD.OB 02:49 → OBSVTOIN 12:37 → JD.OB 12:38
PROVIDERS: ADMIT Obstetrics & Gynecology; ATTEND Obstetrics & Gynecology
PROC: 10E0XZZ Delivery of Products of Conception, External Approach (ICD-10-PCS; principal; 2020-12-16)
PROC: 10907ZC Drainage of Amniotic Fluid, Therapeutic from Products of Conception, Via Natural or Artificial Opening (ICD-10-PCS; 2020-12-16)
PROC: 3E033VJ Introduction of Other Hormone into Peripheral Vein, Percutaneous Approach (ICD-10-PCS; 2020-12-16)
PROC: 3E0R3BZ Introduction of Anesthetic Agent into Spinal Canal, Percutaneous Approach (ICD-10-PCS; 2020-12-16)
DX: O13.4 Gestational [pregnancy-induced] hypertension without significant proteinuria, complicating childbirth (principal); Z37.0 Single live birth; O66.0 Obstructed labor due to shoulder dystocia; Z3A.39 39 weeks gestation of pregnancy; Z20.822 Contact with and (suspected) exposure to COVID-19
CPT/HCPCS: 01967; 36415; 51702; 59025; 59409; 85025; 86592; 86803; 86850; 86900; 86901; A9270-GY; J2590; J3010; J3490; J7120; U0002

== ENCOUNTER 2021-03-15 11:36 | Emergency (ER) | payer MEDICAID, OTHER ==
[2021-03-15 12:02] VITALS: BP 143/93; PULSE 121
--- NOTE | 2021-03-15 12:28 | EDM.PDOC ---
ED HPI GENERAL MEDICAL PROBLEM - General Chief Complaint: ENT Problem Stated Complaint: WEAKNESS OF CHEEK AND EYE MOVEMENT Time Seen by Provider: 03/15/21 12:10 Source of Information: Reports: Patient History Limitations: Reports: No Limitations - History of Present Illness INITIAL COMMENTS - FREE TEXT/NARRATIVE: 25-year-old female presents to the ED presents to the ED with appreciated left sided facial weakness. She initially felt that she had some allergy issues with her left eye as it felt dry and sticky and somewhat like a sandpaper feel. She is used some lubricating eyedrops with some relief. She appreciated this morning particularly when she looked in the mirror that she had left facial weakness on attempt to smile. She denies any headache. She denies any visual acuity changes. She denies any balance problems. She appreciates that the left side of her tongue is numb for the last 3 days. she had COVID-19 illness in January after having a baby a few weeks prior. She is breast-feeding and the child is 3 months old. She has otherwise in good health. As a side note she indicates that she was taking acyclovir for herpes simplex outbreak in her right upper lip about 3 weeks ago. Onset: Gradual Onset Date: 03/13/21 Duration: Day(s):, Getting Worse Location: Reports: Face (Left facial weakness with inability to close her eye completely) Quality: Reports: Other (No pain just left facial weakness with drooling from the left side of her mouth and excessive tearing left eye for 3 days) Severity: Moderate Improves with: Reports: None Worsens with: Reports: None Context: Denies: Activity, Exercise, Lifting, Sick Contact, Trauma, Other Associated Symptoms: Reports: No Other Symptoms. Denies: Confusion, Chest Pain, Cough, cough w sputum, Diaphoresis, Fever/Chills, Loss of Appetite, Malaise, Nausea/Vomiting, Rash, Seizure, Shortness of Breath Treatments REMOTE RECRUITER: Reports: Other (see below) (None.) - Related Data Allergies Allergy/AdvReac Type Severity Reaction Status Date / Time No Known Allergies Allergy Verified 12/16/20 00:42 Home Meds: Home Meds Acyclovir 400 mg PO BID 12/16/20 [History] Citalopram [Citalopram HBr] 20 mg PO DAILY 03/15/21 [History] Mineral Oil/Petrolatum Oint [Lacri-Lube S.O.P Oint] 1 applic OP BEDTIME #15 gm 03/15/21 [Rx] predniSONE [Prednisone] 20 mg PO BID #14 tablet 03/15/21 [Rx] valACYclovir HCl [valACYclovir] 1,000 mg PO TID #21 tablet 03/15/21 [Rx] Past Medical History Cardiovascular History: Reports: None Respiratory History: Reports: None 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 [employer]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: Reports: , Other (See Below) Other [employer] History: History of abnormal pap (ASCUS + HPV) Musculoskeletal History: Reports: None Psychiatric History: Reports: Anxiety, Depression Endocrine/Metabolic History: Reports: Obesity/BMI 30+ Oncologic (Cancer) History: Reports: None - Infectious Disease History Infectious Disease History: 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, Human Papilloma Virus (HPV) - Past Surgical History HEENT Surgical History: Reports: Adenoidectomy, Myringotomy w Tube(s), Tonsillectomy Other HEENT Surgeries/Procedures: age 2 Musculoskeletal Surgical History: Reports: Other (See Below) Other Musculoskeletal Surgeries/Procedures:: History of right elbow fracture Social & Family History - Family History Family Medical History: No Pertinent Family History - Tobacco Use Tobacco Use Status *Q: Never Tobacco User - Caffeine Use Caffeine Use: Reports: Coffee - Recreational Drug Use Recreational Drug Use: No - Living Situation & Occupation Living situation: Reports: Single Occupation: Unemployed ED ROS GENERAL - Review of Systems Review Of Systems: See Below Constitutional: Denies: Fever, Chills, Malaise, Weakness, Fatigue, Night Sweats, Weight Gain, Other HEENT: Reports: Other (Excessive tearing with inability to close her left eye completely for the last 2-1/2 to 3 days). Denies: Contact Lenses Respiratory: Reports: No Symptoms Cardiovascular: Reports: No Symptoms Endocrine: Reports: No Symptoms GI/Abdominal: Reports: No Symptoms : Reports: No Symptoms Musculoskeletal: Reports: No Symptoms Skin: Reports: No Symptoms Neurological: Reports: No Symptoms Psychiatric: Reports: No Symptoms Hematologic/Lymphatic: Reports: No Symptoms Immunologic: Reports: No Symptoms Free Text/Narrative/Comment: Patient is breast-feeding a 3-month-old. ED EXAM, NEURO - Physical Exam Exam: See Below Exam Limited By: No Limitations General Appearance: Alert, WD/WN, Anxious, Other (Patient has obvious left facial weakness particularily when she tries to talk or smile. Vital signs show a temperature of 36.1 with a heart rate of 121 and sinus. She is quite anxious. Respiratory to 16 with O2 sats of 90% room air. BP 143/93) Eye Exam: Bilateral Eye: PERRL, Other (Patient has inability to close her left eye completely.) Ears: Normal External Exam, Normal Canal Throat/Mouth: Normal Inspection, Normal Lips, Normal Teeth, Normal Voice Head Exam: Atraumatic, Normocephalic. 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 Rapid alternating movements [id number] assessment and Romberg are all negative. There is no pronator drift). No: Normal Mood/Affect, CN II- XII Intact, Normal Gait, Normal Reflexes, No Motor/Sensory Deficits, Oriented x 3 DTR: 2+: Bicep (R), Bicep (L), Patella (R), Patella (L), Achilles (R), Achilles (L) Extremities: Normal Inspection, Normal Range of Motion, Non-Tender, No Pedal Edema Psychiatric: Anxious Skin Exam: Warm, Dry, Intact, Normal Color, No Rash Course - Vital Signs Last Recorded V/S: Last Vital Signs Temp 36.1 C 03/15/21 12:02 Pulse 121 H 03/15/21 12:02 Resp 16 03/15/21 12:02 BP 143/93 H 03/15/21 12:02 Pulse Ox 98 03/15/21 12:02 - Radiology Interpretation Free Text/Narrative:: 25-year-old female presents to the ED with left facial weakness and inability to close her left eye completely starting about 3 days ago. She appreciated gritty sandpaper feeling in her left eye likely due to inability to close her left eye overnight. She has been using some moisturizing drops which she will continue. 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 She is breast- feeding but she will still be placed on valacyclovir 1 g 3 times daily at is is presumed Safian breast-feeding. She will also be placed on prednisone 20 mg twice daily for the next week. She will use Lacri-Lube ointment to her left lower eyelid and tape the eye closed overnight until muscular function returns. Advised follow-up with primary care provider in the clinic in 7 to 10 days time. Departure - Departure Time of Disposition: 12:23 Disposition: Home, Self-Care 01 Condition: Fair Clinical Impression: Facial paralysis/[place] palsy - Discharge Information *PRESCRIPTION DRUG MONITORING PROGRAM REVIEWED*: Not Applicable *COPY OF PRESCRIPTION DRUG MONITORING REPORT IN PATIENT LEOBARDO: Not Applicable Prescriptions: Mineral Oil/Petrolatum Oint [Lacri-Lube S.O.P Oint] 1 applic OP BEDTIME #15 gm predniSONE [Prednisone] 20 mg PO BID #14 tablet valACYclovir HCl [valACYclovir] 1,000 mg PO TID #21 tablet Referrals: Cat Correa PA-C [Primary Care Provider] - Forms: ED Department Discharge Additional Instructions: Evaluation in the emergency room today in regards to left facial weakness and difficulty closing the left eye completely. Associated left sided tongue numbness as well. Examination of the neurological system reveals only the 7th cranial nerve on the left side is not functioning normally. This is usually due to a viral infection in the herpes family either herpes 6 or herpes 9 virus often is the culprit. The major potential complication of this illness is drying out of the left cornea because of inability to close her left eye completely during sleep. You will need to place a thin layer of Lacri-Lube to your lower left eyelid lid at bedtime and double patch your eye closed overnight to prevent drying out of the cornea. You will need to take medication antiviral medicine valacyclovir 1 g 3 times daily for the next week to help clear up the viral infection and prednisone 20 mg by mouth twice daily usually with breakfast and supper for the next 7 days as well. Take your first 1 when you get your prescription today and take the next one at bedtime tonight. Suggest follow-up with your primary care provider in 7 to 10 days time. Usually Reis's palsy will resolve completely over 98% of the time in your age group. How long this will take is impossible to know but usually between 3 weeks and 12 weeks. Sepsis Event Note (ED) - Evaluation Sepsis Screening Result: No Definite Risk - Focused Exam Vital Signs: Vital Signs Temp Pulse Resp BP Pulse Ox 03/15/21 12:02 36.1 C 121 H 16 143/93 H 98
== END 2021-03-15 13:50 | disposition home or self-care (01) ==
LOC: JD.ED 11:36
DX: G51.0 Bell's palsy (principal); E66.9 Obesity, unspecified; Z68.35 Body mass index [BMI] 35.0-35.9, adult
CPT/HCPCS: 99283

== ENCOUNTER 2024-09-25 09:39 | Day surgery (SDC) | payer OTHER ==
[~2024-09-25 09:39] MED LIST: Lactated Ringers 1,000 ML IV SCH; Sodium Chloride 0.9% 10 ML Syringe FLUSH PRN; Sodium Chloride 0.9% 10 ML Syringe FLUSH SCH
[2024-09-25] MEDS: Lactated Ringers 1,000 ML IV SCH (10:09)
[2024-09-25] MEDS ORDERED: Propofol 200 MG/20 ML SDV ONE ×4 (10:24→11:20)
[2024-09-25] MEDS ORDERED: Midazolam 1 MG/ML 2 ML SDV ONE (10:34)
[2024-09-25] MEDS: Bupivacaine 0.25% 10 ML SDV ONE (10:48)
[2024-09-25 13:01] VITALS: BP 118/74; PULSE 88
== END 2024-09-25 12:50 | disposition home or self-care (01) ==
LOC: JD.SDS 09:39
PROVIDERS: ATTEND Surgery
DX: R59.0 Localized enlarged lymph nodes (principal); R93.89 Abnormal findings on diagnostic imaging of other specified body structures; E66.9 Obesity, unspecified; F17.210 Nicotine dependence, cigarettes, uncomplicated; Z68.31 Body mass index [BMI] 31.0-31.9, adult; Z79.899 Other long term (current) drug therapy
CPT/HCPCS: 38505; 81025; J0665; J2250; J2704; J7120; 00320